=== PATIENT | male | born 1955 | race Two or more races ===

== ENCOUNTER 2022-10-21 09:45 | Inpatient (IN) | payer OTHER ==
[~2022-10-21] VITALS: Ht 167.6 cm; Wt 108.4 kg
[2022-10-21 10:24] LABS: Basophils # (auto) 0 10 ^3/uL (0-0.2); Basophils % (auto) 0.1 % (0.0-2.0); Eosinophils # (auto) 0 10 ^3/uL (0-0.8); Eosinophils % (auto) 0.1 % (0.0-7.0); Hematocrit 54.1 % (41.0-53.0); Hemoglobin 17.6 g/dL (13.5-17.5); Lymphocytes # (auto) 0.8 10 ^3/uL (0.4-5.4); Lymphocytes % (auto) 7.8 % (10.0-50.0); Mean Corpuscular Hemoglobin 28.2 pg (28.0-32.0); Mean Corpuscular Hgb Conc. 32.5 g/dL (32.0-36.0); Mean Corpuscular Volume 86.7 fL (80.0-100.0); Monocytes # (auto) 0.7 10 ^3/uL (0-1.3); Monocytes % (auto) 6.9 % (0.0-12.0); Neutrophils % (auto) 85.1 % (37.0-80.0); Nucleated Red Blood Cells % 0.4 %; Red Blood Cells 6.24 10^6/uL (4.5-5.90); Red Cell Distribution Width 15.3 % (11.8-14.3); White Blood Cell 10.6 10^3/uL (4.4-10.8)
[2022-10-21] MEDS ORDERED: SODIUM CHLORIDE 0.9% 1,000 ML IV ONE (10:45)
[2022-10-21 11:25] LABS: Chloride 97 mmol/L (98-107); Potassium 3.3 mmol/L (3.5-5.1); Sodium 138 mmol/L (136-145)
[2022-10-21 11:32] LABS: Anion Gap 18 (5-15); Aspartate Aminotransferase 22 U/L (15-37); BUN/Creatinine Ratio 10.6; Bilirubin, Total 1.3 mg/dL (0.2-1.0); Blood Urea Nitrogen 18 mg/dL (7-18); Carbon Dioxide 23 mmol/L (21-32); GFR African American 52 mL/min; GFR Non-African American 43 mL/min; Glucose 243 mg/dL (74-106); Magnesium 1.7 mg/dL (1.6-2.6); Total Protein 8.3 g/dL (6.4-8.2)
[2022-10-21 11:41] LABS: Alanine Aminotransferase 26 U/L (16-61); Alkaline Phosphatase 89 U/L (45-117)
[2022-10-21] MEDS ORDERED: IOHEXOL 300 MG/ML 100ML BOTTLE IJ ONE (14:13)
[2022-10-21] MEDS ORDERED: ONDANSETRON HCL 4 MG/2 ML VIAL IV ONE (15:30)
[2022-10-21] MEDS ORDERED: HYDROmorphone HCL 2 MG/ML VL/or syr IV ONE (15:30)
[2022-10-21] MEDS ORDERED: SODIUM CHLORIDE 0.9% 2,000 ML IV ONE (16:45)
[2022-10-21] MEDS ORDERED: DEXTROSE (50%) 50ML SYRG IV PRN (17:15)
[2022-10-21] MEDS ORDERED: MORPHINE SULFATE INJ 2 MG/ml SYRG IV PRN (17:15)
[2022-10-21] MEDS ORDERED: ONDANSETRON HCL 4 MG/2 ML VIAL IV PRN (17:15)
[2022-10-21] MEDS ORDERED: hydrALAZINE HCL 20 MG/ML VL IV PRN (17:45)
[2022-10-21] MEDS: InsuLIN REG 1unit/0.01ml Soln (100units/ml) SC SCH (18:00)
[2022-10-21] MEDS: ACCU-CHEK COMFORT CURVE STRIP VI SCH (18:02)
[2022-10-21] MEDS: PANTOPRAZOLE 40 MG/10 ML VIAL INJ IV SCH (18:03)
[2022-10-21] MEDS: POTASSIUM CHLORIDE 40 MEQ in SODIUM CHLORIDE 0.9% 1,000 ML IV SCH (18:20)
[2022-10-21 21:21] LABS: Urine Bacteria NONE SEEN /hpf (None Seen); Urine Blood Negative /uL (Negative); Urine Hyaline Cast MOD /lpf (0 - 2); Urine Mucus FEW (None Seen); Urine Specific Gravity 1.355 (1.001-1.035); Urine WBC 5 /hpf (0 - 3)
[2022-10-21 21:24] LABS: Creatinine, Urine 169 mg/dL (30.0-125.0); Sodium Urine 12 mmol/L (40-220)
[2022-10-22] MEDS: ACCU-CHEK COMFORT CURVE STRIP VI SCH ×5 (00:26→23:03)
[2022-10-22] MEDS: InsuLIN REG 1unit/0.01ml Soln (100units/ml) SC SCH ×5 (00:27→23:03)
[2022-10-22] MEDS: POTASSIUM CHLORIDE 40 MEQ in SODIUM CHLORIDE 0.9% 1,000 ML IV SCH ×2 (01:45→12:26)
[2022-10-22 04:30] LABS: Basophils # (auto) 0 10 ^3/uL (0-0.2); Basophils % (auto) 0.1 % (0.0-2.0); Eosinophils # (auto) 0 10 ^3/uL (0-0.8); Hematocrit 44.8 % (41.0-53.0); Hemoglobin 14.6 g/dL (13.5-17.5); Lymphocytes # (auto) 1.3 10 ^3/uL (0.4-5.4); Lymphocytes % (auto) 20.1 % (10.0-50.0); Mean Corpuscular Hgb Conc. 32.7 g/dL (32.0-36.0); Mean Corpuscular Volume 85.8 fL (80.0-100.0); Monocytes # (auto) 0.8 10 ^3/uL (0-1.3); Monocytes % (auto) 11.4 % (0.0-12.0); Neutrophils # (auto) 4.5 10 ^3/uL (1.6-8.6); Neutrophils % (auto) 68.4 % (37.0-80.0); Red Blood Cells 5.23 10^6/uL (4.5-5.90); Red Cell Distribution Width 15.4 % (11.8-14.3); White Blood Cell 6.6 10^3/uL (4.4-10.8)
[2022-10-22 06:18] LABS: Albumin 3.2 g/dL (3.4-5.0); BUN/Creatinine Ratio 21.1; Bilirubin, Total 1.3 mg/dL (0.2-1.0); Calcium 8.6 mg/dL (8.5-10.1); Total Protein 6.7 g/dL (6.4-8.2)
[2022-10-22 09:00] VITALS: BP 132/84
[2022-10-22] MEDS: PANTOPRAZOLE 40 MG/10 ML VIAL INJ IV SCH (11:27)
[2022-10-22] MEDS: SOD CHL 0.9%/ KCL 40MEQ 1,000 ML IV SCH (15:30)
[2022-10-22 22:00] VITALS: BP 137/84
[2022-10-23] MEDS: SOD CHL 0.9%/ KCL 40MEQ 1,000 ML IV SCH ×4 (00:36→19:20)
[2022-10-23 05:00] VITALS: BP 147/86
[2022-10-23] MEDS: ACCU-CHEK COMFORT CURVE STRIP VI SCH ×4 (05:28→23:28)
[2022-10-23] MEDS: InsuLIN REG 1unit/0.01ml Soln (100units/ml) SC SCH ×4 (05:28→23:28)
[2022-10-23 09:00] VITALS: BP 145/89
[2022-10-23] MEDS: PANTOPRAZOLE 40 MG/10 ML VIAL INJ IV SCH (09:22)
[2022-10-23] MEDS ORDERED: GASTROGRAFIN 120 ML SOL ONE (10:54)
[2022-10-23 11:30] LABS: BUN/Creatinine Ratio 18.3; Calcium 8.4 mg/dL (8.5-10.1); Potassium 4.1 mmol/L (3.5-5.1)
[2022-10-23 13:00] VITALS: BP 153/91
[2022-10-23 17:00] VITALS: BP 145/93
[2022-10-23 22:00] VITALS: BP 152/81
[2022-10-24 05:00] VITALS: BP 156/83
[2022-10-24] MEDS: InsuLIN REG 1unit/0.01ml Soln (100units/ml) SC SCH ×3 (06:00→16:33)
[2022-10-24] MEDS: ACCU-CHEK COMFORT CURVE STRIP VI SCH ×3 (06:03→16:33)
[2022-10-24 06:43] LABS: Potassium 4.6 mmol/L (3.5-5.1)
[2022-10-24 06:47] LABS: BUN/Creatinine Ratio 18.3; Calcium 8.7 mg/dL (8.5-10.1)
[2022-10-24 07:30] LABS: Basophils # (auto) 0 10 ^3/uL (0-0.2); Basophils % (auto) 0.1 % (0.0-2.0); Eosinophils # (auto) 0.1 10 ^3/uL (0-0.8); Eosinophils % (auto) 0.7 % (0.0-7.0); Hematocrit 41.9 % (41.0-53.0); Hemoglobin 13.4 g/dL (13.5-17.5); Lymphocytes # (auto) 1.7 10 ^3/uL (0.4-5.4); Lymphocytes % (auto) 19.6 % (10.0-50.0); Mean Corpuscular Hemoglobin 27.9 pg (28.0-32.0); Mean Corpuscular Hgb Conc. 31.9 g/dL (32.0-36.0); Mean Corpuscular Volume 87.6 fL (80.0-100.0); Monocytes # (auto) 0.7 10 ^3/uL (0-1.3); Monocytes % (auto) 7.9 % (0.0-12.0); Neutrophils # (auto) 6.4 10 ^3/uL (1.6-8.6); Neutrophils % (auto) 71.7 % (37.0-80.0); Nucleated Red Blood Cells % 0.1 %; Red Blood Cells 4.78 10^6/uL (4.5-5.90); Red Cell Distribution Width 15.2 % (11.8-14.3); White Blood Cell 8.9 10^3/uL (4.4-10.8)
[2022-10-24] MEDS: PANTOPRAZOLE 40 MG/10 ML VIAL INJ IV SCH (08:04)
[2022-10-24 09:00] VITALS: BP 150/66
[2022-10-24] MEDS ORDERED: SOD CHL 0.45% 1,000 ML IV SCH (11:00)
[2022-10-24 13:00] VITALS: BP 146/102
== END 2022-10-24 20:17 | disposition home or self-care (01) | DRG 389 ==
LOC: ER 09:45 → OVERFLOW 17:15 → CENTRAL 10-22 08:55
PROVIDERS: ADMIT Nurse Practitioner Family; ATTEND Nurse Practitioner Acute Care
PROC: 0D9670Z Drainage of Stomach with Drainage Device, Via Natural or Artificial Opening (ICD-10-PCS; principal; 2022-10-21)
DX: K56.699 Other intestinal obstruction unspecified as to partial versus complete obstruction (principal); J98.11 Atelectasis; N17.9 Acute kidney failure, unspecified; K57.10 Diverticulosis of small intestine without perforation or abscess without bleeding; E11.21 Type 2 diabetes mellitus with diabetic nephropathy; E78.5 Hyperlipidemia, unspecified; E86.0 Dehydration; E87.6 Hypokalemia; I10 Essential (primary) hypertension; K40.20 Bilateral inguinal hernia, without obstruction or gangrene, not specified as recurrent; K76.0 Fatty (change of) liver, not elsewhere classified; K80.20 Calculus of gallbladder without cholecystitis without obstruction; M51.36 Other intervertebral disc degeneration, lumbar region; E66.9 Obesity, unspecified; Z68.38 Body mass index [BMI] 38.0-38.9, adult; Z20.822 Contact with and (suspected) exposure to COVID-19
CPT/HCPCS: 36415; 71045; 74177; 74250; 80048; 80053; 81001; 82010; 82570; 82962; 83036; 83690; 83735; 84100; 84300; 85025; 87426; 93005; 96361; 96374; 96375; C9113; G0378; J1815; J2405

== ENCOUNTER → 2024-03-04 | Outpatient (CLI) | payer MEDICAID ==
[2024-03-04 10:05] LABS: Urine Bacteria None Seen /hpf (None Seen)
[2024-03-04 10:27] LABS: Basophils # (auto) 0 10 ^3/uL (0-0.2); Basophils % (auto) 0.2 % (0.0-2.0); Eosinophils # (auto) 0.1 10 ^3/uL (0-0.8); Eosinophils % (auto) 1.7 % (0.0-7.0); Lymphocytes # (auto) 3.7 10 ^3/uL (0.4-5.4); Lymphocytes % (auto) 43.6 % (10.0-50.0); Mean Corpuscular Volume 87.6 fL (80.0-100.0); Monocytes # (auto) 0.8 10 ^3/uL (0-1.3); Neutrophils # (auto) 3.9 10 ^3/uL (1.6-8.6); Neutrophils % (auto) 45.5 % (37.0-80.0); Nucleated Red Blood Cells % 0.2 %; Red Blood Cells 5.37 10^6/uL (4.5-5.90); Red Cell Distribution Width 14.6 % (11.8-14.3); White Blood Cell 8.6 10^3/uL (4.4-10.8)
[2024-03-04 10:51] LABS: Urine Blood Negative /uL (Negative); Urine Clarity Clear (Clear); Urine Color Light-Yellow (Yellow); Urine Protein, UAD Negative (Negative); Urine Specific Gravity 1.015 (1.001-1.035); Urine Urobilinogen Normal (Negative); Urine WBC <1 /hpf (0 - 3); Urine pH 5.5 (5.0-9.0)
[2024-03-04 11:46] LABS: Creatinine, Urine 84.04 mg/dL (30.0-125.0)
[2024-03-04 11:51] LABS: Alanine Aminotransferase 18 U/L (7-40); Albumin 4.4 g/dL (3.2-4.8); Alkaline Phosphatase 87 U/L (46-116); Anion Gap 5 (5-15); Aspartate Aminotransferase 20 U/L (13-40); BUN/Creatinine Ratio 17.8 (10.0-20.0); Blood Urea Nitrogen 16 mg/dL (9-23); Calcium 9.9 mg/dL (8.5-10.1); Carbon Dioxide 29 mmol/L (20-30); Chloride 103 mmol/L (98-107); Cholesterol 104 mg/dL (< 200); Glucose 101 mg/dL (74-106); HDL Cholesterol 32 mg/dL (40-59); LDL Cholesterol 48 mg/dL (< 100); Potassium 4.6 mmol/L (3.5-5.1); Sodium 137 mmol/L (136-145); Triglycerides 131 mg/dL (< 150)
[2024-03-04 11:53] LABS: Bilirubin, Total 1.1 mg/dL (0.2-1.0); Total Protein 7.1 g/dL (5.7-8.2)
== END | disposition home or self-care (01) ==
LOC: LAB 09:53
PROVIDERS: ATTEND Student in an Organized Health Care Education/Training Program
DX: I10 Essential (primary) hypertension (principal); E78.5 Hyperlipidemia, unspecified; E11.21 Type 2 diabetes mellitus with diabetic nephropathy; R14.0 Abdominal distension (gaseous); E55.9 Vitamin D deficiency, unspecified
CPT/HCPCS: 36415; 80053; 80061; 81001; 82043; 82306; 82570; 83036; 85025

== ENCOUNTER → 2024-09-02 | Outpatient (CLI) | payer MEDICAID ==
[2024-09-02 09:55] LABS: Basophils # (auto) 0 10 ^3/uL (0-0.2); Basophils % (auto) 0.2 % (0.0-2.0); Eosinophils # (auto) 0.1 10 ^3/uL (0-0.8); Eosinophils % (auto) 1.4 % (0.0-7.0); Hematocrit 48.9 % (41.0-53.0); Hemoglobin 15.9 g/dL (13.5-17.5); Lymphocytes # (auto) 3.8 10 ^3/uL (0.4-5.4); Lymphocytes % (auto) 37.9 % (10.0-50.0); Mean Corpuscular Hemoglobin 28.3 pg (28.0-32.0); Mean Corpuscular Hgb Conc. 32.5 g/dL (32.0-36.0); Mean Corpuscular Volume 87.2 fL (80.0-100.0); Monocytes # (auto) 0.7 10 ^3/uL (0-1.3); Monocytes % (auto) 7.2 % (0.0-12.0); Neutrophils # (auto) 5.3 10 ^3/uL (1.6-8.6); Neutrophils % (auto) 53.3 % (37.0-80.0); Nucleated Red Blood Cells % 0.1 %; Platelet Count (auto) 204 10^3/uL (140-450); Red Cell Distribution Width 14.5 % (11.8-14.3)
[2024-09-02 10:03] LABS: Urine Blood Negative /uL (Negative); Urine Clarity Clear (Clear); Urine Color Light-Yellow (Yellow); Urine Protein, UAD TRACE (Negative); Urine Urobilinogen Normal (Negative); Urine pH 5.5 (5.0-9.0)
[2024-09-02 10:54] LABS: Creatinine, Urine 167.35 mg/dL (30.0-125.0)
[2024-09-02 10:56] LABS: Alanine Aminotransferase 18 U/L (7-40); Albumin 4.5 g/dL (3.2-4.8); Alkaline Phosphatase 93 U/L (46-116); Anion Gap 5 (5-15); Aspartate Aminotransferase 16 U/L (13-40); BUN/Creatinine Ratio 15.6 (10.0-20.0); Bilirubin, Total 1.4 mg/dL (0.2-1.0); Blood Urea Nitrogen 17 mg/dL (9-23); Carbon Dioxide 31 mmol/L (20-31); Chloride 102 mmol/L (98-107); Cholesterol 100 mg/dL (< 200); Glucose 104 mg/dL (74-106); HDL Cholesterol 32 mg/dL (40-59); LDL Cholesterol 39 mg/dL (< 100); Potassium 4.2 mmol/L (3.5-5.1); Sodium 138 mmol/L (136-145); Total Protein 7.4 g/dL (5.7-8.2); Triglycerides 174 mg/dL (< 150)
[2024-09-02 11:07] LABS: Prostate Specific Antigen 0.77 ng/mL (0.0-4.0)
== END | disposition home or self-care (01) ==
LOC: LAB 09:29
DX: Z12.11 Encounter for screening for malignant neoplasm of colon (principal); I10 Essential (primary) hypertension; E55.9 Vitamin D deficiency, unspecified; E78.5 Hyperlipidemia, unspecified
CPT/HCPCS: 36415; 80053; 80061; 81003; 82043; 82306; 82570; 82607; 83036; 84153; 85025

== ENCOUNTER → 2025-04-03 | Outpatient (CLI) | payer MEDICAID ==
[2025-04-03 07:06] LABS: Urine Bacteria None Seen /hpf (None Seen)
[2025-04-03 07:38] LABS: Basophils # (auto) 0 10 ^3/uL (0-0.2); Basophils % (auto) 0.2 % (0.0-2.0); Eosinophils # (auto) 0.2 10 ^3/uL (0-0.8); Eosinophils % (auto) 1.9 % (0.0-7.0); Hematocrit 47.5 % (41.0-53.0); Hemoglobin 15.7 g/dL (13.5-17.5); Lymphocytes # (auto) 4.2 10 ^3/uL (0.4-5.4); Lymphocytes % (auto) 46.6 % (10.0-50.0); Mean Corpuscular Hemoglobin 27.7 pg (28.0-32.0); Mean Corpuscular Hgb Conc. 33.1 g/dL (32.0-36.0); Mean Corpuscular Volume 83.7 fL (80.0-100.0); Monocytes # (auto) 0.7 10 ^3/uL (0-1.3); Monocytes % (auto) 7.6 % (0.0-12.0); Neutrophils # (auto) 3.9 10 ^3/uL (1.6-8.6); Neutrophils % (auto) 43.7 % (37.0-80.0); Nucleated Red Blood Cells % 0.2 %; Platelet Count (auto) 199 10^3/uL (140-450); Red Blood Cells 5.67 10^6/uL (4.5-5.90); Red Cell Distribution Width 15.1 % (11.8-14.3); Urine Blood Negative /uL (Negative); Urine Clarity Turbid (Clear); Urine Color Light-Yellow (Yellow); Urine Protein, UAD Negative (Negative); Urine Specific Gravity 1.013 (1.001-1.035); Urine Squamous Epithelial Cell None Seen /hpf (<5); Urine Urobilinogen Normal (Negative); Urine WBC 3 /HPF (0-3); Urine pH 5.5 (5.0-9.0); White Blood Cell 8.9 10^3/uL (4.4-10.8)
[2025-04-03 08:24] LABS: Alanine Aminotransferase 16 U/L (7-40); Albumin 4.6 g/dL (3.2-4.8); Alkaline Phosphatase 94 U/L (46-116); Anion Gap 7 (5-15); Aspartate Aminotransferase 19 U/L (13-40); BUN/Creatinine Ratio 13.5 (10.0-20.0); Blood Urea Nitrogen 14 mg/dL (9-23); Calcium 10.4 mg/dL (8.7-10.4); Carbon Dioxide 29 mmol/L (20-31); Chloride 104 mmol/L (98-107); Glucose 103 mg/dL (74-106); LDL Cholesterol 38 mg/dL (< 100); Potassium 4.4 mmol/L (3.5-5.1); Sodium 140 mmol/L (136-145); Total Protein 7.2 g/dL (5.7-8.2)
[2025-04-03 08:25] LABS: Bilirubin, Total 1.1 mg/dL (0.2-1.0); Cholesterol 99 mg/dL (< 200)
[2025-04-03 08:29] LABS: HDL Cholesterol 28 mg/dL (40-59); Triglycerides 165 mg/dL (< 150)
== END | disposition home or self-care (01) ==
LOC: LAB 06:51
PROVIDERS: ATTEND Nurse Practitioner Family
DX: I10 Essential (primary) hypertension (principal); E11.9 Type 2 diabetes mellitus without complications; E55.9 Vitamin D deficiency, unspecified; E78.5 Hyperlipidemia, unspecified
CPT/HCPCS: 36415; 80053; 80061; 81001; 82306; 82607; 83036; 84443; 85025

== ENCOUNTER → 2025-07-31 | Outpatient (CLI) | payer MEDICAID ==
[2025-07-31 08:59] LABS: Hematocrit 48.8 % (41.0-53.0); Hemoglobin 16.1 g/dL (13.5-17.5); Mean Corpuscular Hemoglobin 28.3 pg (28.0-32.0); Mean Corpuscular Volume 85.5 fL (80.0-100.0); Nucleated Red Blood Cells % 0.1 %
[2025-07-31 09:16] LABS: Microalb/Creat Ratio, Urine 23.0
[2025-07-31 09:18] LABS: Urine Protein, UAD Negative (Negative)
[2025-07-31 09:19] LABS: Alanine Aminotransferase 17 U/L (7-40); Albumin 4.6 g/dL (3.2-4.8); Alkaline Phosphatase 108 U/L (46-116); Anion Gap 9 (5-15); BUN/Creatinine Ratio 11.9 (10.0-20.0); Blood Urea Nitrogen 13 mg/dL (9-23); Calcium 9.8 mg/dL (8.7-10.4); Carbon Dioxide 30 mmol/L (20-31); Chloride 101 mmol/L (98-107); Glucose 103 mg/dL (74-106); Potassium 5.0 mmol/L (3.5-5.1); Sodium 140 mmol/L (136-145); Total Protein 7.6 g/dL (5.7-8.2)
[2025-07-31 09:20] LABS: Bilirubin, Total 1.1 mg/dL (0.2-1.0); Cholesterol 102 mg/dL (< 200); HDL Cholesterol 33 mg/dL (40-59); Triglycerides 154 mg/dL (< 150)
== END | disposition home or self-care (01) ==
LOC: LAB 08:21
PROVIDERS: ATTEND Nurse Practitioner Family
DX: I10 Essential (primary) hypertension (principal); E78.5 Hyperlipidemia, unspecified; E55.9 Vitamin D deficiency, unspecified
CPT/HCPCS: 36415; 80053; 80061; 81001; 82043; 82306; 82570; 83036; 84443; 85025

== ENCOUNTER 2025-10-21 11:59 | Inpatient (IN) | payer MEDICAID ==
[~2025-10-21] VITALS: Ht 172.7 cm; Wt 106.8 kg
--- NOTE | 2025-10-21 12:38 | ED.PDOC ---
GI ASSESSMENT HPI Comments 70y M who presents to the ED for chief complaint of abdominal pain. Pt states he has been having diffuse abdominal pain and swelling for the past 1x days. Pt states his pain is diffusely located, aching in nature, constant, with no noted exacerbating or relieving factors. Pt denies any associated symptoms. Pt in the ED, had low 02 sat of 92% and was placed on supplemental 02. Pt prior records show pt was at [facility] 2x years prior for similar symptoms and was hospitalized and had NG tube placed for possible bowel obstruction which resolved after hospitalization and pt was discharged on normal diet. Pt otherwise denies any other symptoms at this time. Chief Complaint: Abdominal Pain Time Seen by MD: 12:36 Primary Care Provider: RYANNE Quiroz Notes: Medications, Allergies Allergies: Coded Allergies: NO KNOWN ALLERGIES (Unverified , 10/21/22) Home Meds No Active Prescriptions or Reported Meds Information Source: Patient, Relative Mode of Arrival: Ambulatory Brought in by: family Past Medical History PAST MEDICAL HISTORY: DM, High Lipids, HTN Surgical History: Denies all surgeries Family History Family History: Reviewed,noncontributory to illness Social History Smoker: Non-Smoker Alcohol: Denies ETOH Use Drugs: Denies Drug Use Lives In: Home Constitutional: denies: chills, diaphoresis, fatigue, fever, malaise, sweats, weakness, others EENTM: denies: blurred vision, double vision, ear bleeding, ear discharge, ear drainage, ear pain, ear ringing, eye pain, eye redness, hearing loss, mouth pain, mouth swelling, nasal discharge, nose bleeding, nose congestion, nose pain, photophobia, tearing, throat pain, throat swelling, voice changes, others Respiratory: denies: cough, hemoptysis, orthopnea, SOB at rest, shortness of breath, SOB with excertion, stridor, wheezing, others Cardiovascular: denies: chest pain, dizzy spells, diaphoresis, Dyspnea on exertion, edema, irregular heart beat, left arm pain, lightheadedness, palpitations, PND, syncope, others Gastrointestinal: reports: abdominal pain; denies: abdomen distended, blood streaked bowels, constipated, diarrhea, dysphagia, difficulty swallowing, hematemesis, melena, nausea, poor appetite, poor fluid intake, rectal bleeding, rectal pain, vomiting, others Genitourinary: denies: burning, dysuria, flank pain, frequency, hematuria, incontinence, penile discharge, penile sore, pain, testicle pain, testicle swelling, urgency, others Neurological: denies: dizziness, fainting, headache, left sided numbness, left sided weakness, numbness, paresthesia, pre-existing deficit, right sided numbne ss, right sided weakness, seizure, speech problems, tingling, tremors, weakness, others Musculoskeletal: denies: back pain, gout, joint pain, joint swelling, muscle pain, muscle stiffness, neck pain, others Integumetry: denies: bruises, change in color, change in hair/nails, dryness, laceration, lesions, lumps, rash, wounds, others Allergic/Immunocompromised: denies: Difficulty Healing, Frequent Infections, Hives, Itching, others Hematologic/Lymphatic: denies: anemia, blood clots, easy bleeding, easy bruising, swollen glands, others Endocrine: denies: excessive hunger, excessive sweating, excessive thirst, excessive urination, flushing, intolerance to cold, intolerance to heat, unexplained weight gain, unexplained weight loss, others Psychiatric: denies: anxiety, bipolar disorder, depression, hopeless, panic disorder, schizophrenia, sleepless, suicidal, others All Other Systems: Reviewed and Negative Physical Exam General Appearance: Moderate Distress HEENT: Normal ENT Inspection, PERRL/EOMI Neck: Full Range of Motion, Non-Tender, Normal, Normal Inspection Respiratory: Chest Non-Tender, Lungs Clear, No Accessory Muscle Use, No Respiratory Distress, Normal Breath Sounds Cardiovascular: No Edema, No JVD, No Murmur, No Gallop, Normal Peripheral Pulses, Regular Rate/Rhythm Breast Exam: Deferred Gastrointestinal: Distended, Epigastric, No Organomegaly, No Pulsatile Mass, Normal Bowel Sounds, Soft, Tenderness Genitalia: Deferred Pelvic: Deferred Rectal: Deferred Extremities: No calf tenderness, Normal capillary refill, Normal inspection, Normal range of motion, Non-tender, No pedal edema Neurologic: Alert, channel marketing coordinator II-XII nml as Tested, No Motor Deficits, Normal Affect, Normal Mood, No Sensory Deficits Cerebellar Function: Normal Reflexes: Normal Skin: Dry, Normal Color, Warm Peripheral Pulses: 1+ carotid (R), 1+ carotid (L) Lymphatic: No Adenopathy Was a procedure done? Was a procedure done?: No GI differential Dx Differential Diagnosis: Bowel Obstruction, Constipation, Diverticular disease, GI hemorrhage, Hernia, Dehydration, Diabetes/ DKA, Electrolyte Imbalance, Ischemic Bowel, Anemia Other Differential Diagnosis ileus, X-Ray, Labs, Meds, VS Vital Signs Date Time Temp Pulse Resp B/P (MAP) Pulse Ox O2 Delivery O2 Flow Rate FiO2 10/21/25 14:07 110 10/21/25 12:06 98.5 120 18 158/102 92 98.5 Lab Test 10/21/25 12:39 Range/Units White Blood Count 14.2 H 4.4-10.8 10^3/uL Red Blood Count 6.12 H 4.5-5.90 10^6/uL Hemoglobin 16.9 13.5-17.5 g/dL Hematocrit 52.3 41.0-53.0 % Mean Corpuscular Volume 85.4 80.0-100.0 fL Mean Corpuscular Hemoglobin 27.6 L 28.0-32.0 pg Mean Corpuscular Hemoglobin Concent 32.3 32.0-36.0 g/dL Red Cell Distribution Width 15.3 H 11.8-14.3 % Platelet Count 237 140-450 10^3/uL Mean Platelet Volume 7.3 6.9-10.8 fL Neutrophils (%) (Auto) 84.4 H 37.0-80.0 % Lymphocytes (%) (Auto) 9.6 L 10.0-50.0 % Monocytes (%) (Auto) 6.0 0.0-12.0 % Eosinophils (%) (Auto) 0.0 0.0-7.0 % Basophils (%) (Auto) 0.0 0.0-2.0 % Neutrophils # (Auto) 12.0 H 1.6-8.6 10 ^3/uL Lymphocytes # (Auto) 1.4 0.4-5.4 10 ^3/uL Monocytes # (Auto) 0.9 0-1.3 10 ^3/uL Eosinophils # (Auto) 0 0-0.8 10 ^3/uL Basophils # (Auto) 0 0-0.2 10 ^3/uL Nucleated Red Blood Cells 0.0 % Sodium Level 141 136-145 mmol/L Potassium Level 4.3 3.5-5.1 mmol/L Chloride Level 100 98-107 mmol/L Carbon Dioxide Level 30 20-31 mmol/L Anion Gap 11 5-15 Blood Urea Nitrogen 12 9-23 mg/dL Creatinine 1.16 0.700-1.30 mg/dL Glomerular Filtration Rate Calc 68 >90 mL/min BUN/Creatinine Ratio 10.3 10.0-20.0 Serum Glucose 167 H 74-106 mg/dL Calcium Level 11.1 H 8.7-10.4 mg/dL Magnesium Level 1.8 1.6-2.6 mg/dL Total Bilirubin 1.1 H 0.2-1.0 mg/dL Aspartate Amino Transferase (AST) 25 13-40 U/L Alanine Aminotransferase (ALT) 17 7-40 U/L Alkaline Phosphatase 110 46-116 U/L Total Protein 8.1 5.7-8.2 g/dL Albumin 4.9 H 3.2-4.8 g/dL Lipase 35 12-53 U/L [place] [id number] Ph: [phone] DIAGNOSTIC IMAGING Diagnostic Imaging Report : [id number] Signed PATIENT: FREDA JOHNSACCT: [id number] UNIT: [id number] : 1955 LOC: ER ROOM / BED: / AGE / SEX: 70 / M ADM STATUS: REG ER SERVICE [id number] ORDERING PHYSICIAN: RASHIDA TORREZ MD PROCEDURE(s): ABPLIV - CT AB PEL WITH IV CON ONLY REASON: Sudden onset due abdominal distention ORDER NUMBER(s): [id number], ACCESSION NUMBER(s): [id number] EXAM: CT CT AB PEL WITH IV CON ONLY History: Sudden onset due abdominal distention Comparison Study: CT AB PEL WITH IV CON ONLY on DOS: 10/21/22 TECHNIQUE: Multidetector CT of the abdomen and pelvis with IV contrast. Axial, coronal and sagittal multiplanar reformats were obtained from the axial data set by the technologist. Radiation Dose Information: CT Dose: CTDI volume is 24.7 mGy. Dose-length product is 1569.25 mGy*cm FINDINGS: Bibasilar atelectasis. Partially visualized heart is unremarkable. Liver, spleen, pancreas and adrenal glands are unremarkable. Cholelithiasis with no CT evidence of acute cholecystitis. Kidneys, ureters and urinary bladder unremarkable. Prostate measures 3.9 x 4.3 by 4 cm with calcifications. 1.6 cm hypodensity within the stomach with adjacent small Layering hypodensity which may represent Ingested material. Mild gastric wall thickening. 2.3 x 1.6 cm proximal duodenal diverticulum is noted. Proximal small bowel loops are unremarkable. Fluid filled distended mid to Distal Small bowel loops with areas with distention up to 3.9 cm. Appendix is unremarkable. Moderate amount of fecal material within the ascending and transverse colon. Otherwise, Small amount of fecal material within the colon. Mild wall thickening of the colon adjacent to the ileocecal valve. 2.6 x 2.2 cm fatty lesion over the left lateral midabdomen without adjacent inflammatory reaction which may represent an epiploic appendage. No evidence of intraperitoneal free air or free fluid. No evidence of aortic aneurysm or dissection. Minimal atherosclerotic calcification of the aorta. No significant lymphadenopathy. Moderate fat containing right inguinal hernia. Tiny fat containing umbilical hernia. The soft tissues unremarkable. Sclerotic focus of the right sacral bone which may represent a bone island blastic lesion not excluded. Severe degenerative changes of bilateral SI joints with moderate degenerative changes of bilateral hips. No evidence of acute osseous abnormalities. Multilevel bridging osteophytes of the thoracic and lumbar spine. IMPRESSION: Fluid-filled Distended Small bowel loops measuring up to 3.9 cm. Correlate for bowel obstruction/ ileus. Mild wall thickening of the mid stomach which may be due to inadequate distention/gastritis. Segmental wall thickening of the ascending colon adjacent to the ileocecal valve. Colonoscopy is recommended to exclude neoplasm. Additional findings as above. ATED BY: ROSA ROMAN DO DICTATED DATE/TIME: 10/21/25 140 SIGNED BY: ROSA ROMAN DO SIGNED DATE/TIME: 10/21/25 140 CC: X-Ray, Labs, Meds, VS Comment Course in the emergency department eventful patient came in with a distended abdomen The CT abdomen burning shows probably need small-bowel obstruction could be ED use which she had three years ago also gastritis an ileocecal wall thickening to thing grossly [place] 63461 rhythm with a T4% neutrophils in normal H&H CMP blood sugar is 167 calcium 11.1 magnesium 1.8 the lipase 35 rest normal Patient we will be admitted for further care Time of 1ST Reevaluation: 13:10 Reevaluation 1ST: Unchanged Time of 2ND Reevaluation: 15:00 Reevaluation 2ND: Unchanged Patient Education/Counseling: Diagnosis, Treatment, Prognosis, Need For Follow Up Family Education/Counseling: Diagnosis, Treatment, Prognosis, Need For Follow Up, No Family Present SEPSIS Sepsis Screen Date sepsis recognized/suspect: Oct 21, 2025 Time Sepsis recognized/suspect: 1208 Recent Procedure: No On Antibiotic Therapy: No Respiratory Rate >20: No Heart Rate >90: Yes Temp<36 C (96.8 F) or >38.3 C: No SBP <90 or MAP <65 mmHG: No New Acute Mental Status Change: No Is the patient on CPAP, BIPAP,: No Physician Orders Ct Ab Pel With Iv Con Only (10/21/25 12:28) Heplock Iv (10/21/25 12:28) Blood Pressure (10/21/25 12:28) Electrocardigram (10/21/25 12:28) Ng To Lcs (10/21/25 15:03) Vital Signs Date Time Temp Pulse Resp B/P (MAP) Pulse Ox O2 Delivery O2 Flow Rate FiO2 10/21/25 14:07 110 10/21/25 12:06 98.5 120 18 158/102 92 98.5 Laboratory Tests Test 10/21/25 12:39 White Blood Count 14.2 10^3/uL (4.4-10.8) H Departure 1 Departure Time of Disposition: 15:00 Impression: Primary Impression: Small bowel obstruction Additional Impressions: Uncontrolled diabetes mellitus Qualified Codes: E11.65 - Type 2 diabetes mellitus with hyperglycemia Gastritis Qualified Codes: K29.30 - Chronic superficial gastritis without bleeding Abnormal computed tomography of cecum and terminal ileum Disposition: ADMITTED INPATIENT Admit to: Tele Condition: Fair e-Prescriptions No Active Prescriptions or Reported Meds Critical Care Note Critical Care Time?: No Stability Stability form required: Yes Heart Score Heart Score: Heart Score Response (Comments) Value History N/A 0 EKG N/A 0 Age >65 2 Risk Factors 1 or 2 risk factors 1 Troponin N/A 0 Total 3 I personally scribed for RASHIDA TORREZ MD ([email or web address]) on 10/21/25 at 12:38. Electronically submitted by Ramonita Suazo ([email or web address]). RASHIDA TORREZ MD Oct 21, 2025 12:38
[2025-10-21 12:54] LABS: Nucleated Red Blood Cells % 0.0 %
[2025-10-21 12:55] LABS: Hematocrit 52.3 % (41.0-53.0); Hemoglobin 16.9 g/dL (13.5-17.5); Mean Corpuscular Hemoglobin 27.6 pg (28.0-32.0); Mean Corpuscular Volume 85.4 fL (80.0-100.0)
[2025-10-21 13:07] LABS: Alanine Aminotransferase 17 U/L (7-40); Alkaline Phosphatase 110 U/L (46-116); Anion Gap 11 (5-15); BUN/Creatinine Ratio 10.3 (10.0-20.0); Blood Urea Nitrogen 12 mg/dL (9-23); Carbon Dioxide 30 mmol/L (20-31); Chloride 100 mmol/L (98-107); Lipase 35 U/L (12-53); Magnesium 1.8 mg/dL (1.6-2.6); Potassium 4.3 mmol/L (3.5-5.1); Sodium 141 mmol/L (136-145); Total Protein 8.1 g/dL (5.7-8.2)
[2025-10-21 13:08] LABS: Albumin 4.9 g/dL (3.2-4.8); Bilirubin, Total 1.1 mg/dL (0.2-1.0); Calcium 11.1 mg/dL (8.7-10.4); Glucose 167 mg/dL (74-106)
[2025-10-21] MEDS: IOHEXOL 300 MG/ML 100ML BOTTLE IJ ONE (14:09)
--- NOTE | 2025-10-21 14:12 | DVH ---
EXAM: CT CT AB PEL WITH IV CON ONLY History: Sudden onset due abdominal distention Comparison Study: CT AB PEL WITH IV CON ONLY on DOS: 10/21/22 TECHNIQUE: Multidetector CT of the abdomen and pelvis with IV contrast. Axial, coronal and sagittal multiplanar reformats were obtained from the axial data set by the technologist. Radiation Dose Information: CT Dose: CTDI volume is 24.7 mGy. Dose-length product is 1569.25 mGy*cm FINDINGS: Bibasilar atelectasis. Partially visualized heart is unremarkable. Liver, spleen, pancreas and adrenal glands are unremarkable. Cholelithiasis with no CT evidence of acute cholecystitis. Kidneys, ureters and urinary bladder unremarkable. Prostate measures 3.9 x 4.3 by 4 cm with calcifications. 1.6 cm hypodensity within the stomach with adjacent small Layering hypodensity which may represent Ingested material. Mild gastric wall thickening. 2.3 x 1.6 cm proximal duodenal diverticulum is noted. Proximal small bowel loops are unremarkable. Fluid filled distended mid to Distal Small bowel loops with areas with distention up to 3.9 cm. Appendix is unremarkable. Moderate amount of fecal material within the ascending and transverse colon. Otherwise, Small amount of fecal material within the colon. Mild wall thickening of the colon adjacent to the ileocecal valve. 2.6 x 2.2 cm fatty lesion over the left lateral midabdomen without adjacent inflammatory reaction which may represent an epiploic appendage. No evidence of intraperitoneal free air or free fluid. No evidence of aortic aneurysm or dissection. Minimal atherosclerotic calcification of the aorta. No significant lymphadenopathy. Moderate fat containing right inguinal hernia. Tiny fat containing umbilical hernia. The soft tissues unremarkable. Sclerotic focus of the right sacral bone which may represent a bone island blastic lesion not excluded. Severe degenerative changes of bilateral SI joints with moderate degenerative changes of bilateral hips. No evidence of acute osseous abnormalities. Multilevel bridging osteophytes of the thoracic and lumbar spine. IMPRESSION: Fluid-filled Distended Small bowel loops measuring up to 3.9 cm. Correlate for bowel obstruction/ ileus. Mild wall thickening of the mid stomach which may be due to inadequate distention/gastritis. Segmental wall thickening of the ascending colon adjacent to the ileocecal valve. Colonoscopy is recommended to exclude neoplasm. Additional findings as above.
[2025-10-21] MEDS ORDERED: ONDANSETRON HCL 4 MG/2 ML VIAL IV PRN (18:30)
[2025-10-21] MEDS ORDERED: ACETAMINOPHEN 325 MG TAB PO PRN (18:30)
[2025-10-21] MEDS ORDERED: DEXTROSE (50%) 50ML SYRG IV PRN (18:30)
[2025-10-21] MEDS ORDERED: MORPHINE SULFATE 4 MG/ML SYR/VIAL IV PRN ×2 (18:30)
[2025-10-21] MEDS ORDERED: NITROGLYCERIN 0.4 MG SL TAB SL PRN (18:30)
--- NOTE | 2025-10-21 18:39 | DVHHPRES ---
History of Present Illness Resident Creating Document: POWER CANALES RESIDENT History of Present Illness Mr. Matthews Is a 70-year-old male presents with acute onset of abdominal bloating and vomiting that began last night. The patient reports eating 3 tamales around 1 PM yesterday, after which he developed significant bloating o vernight. This morning the symptoms worsened and he vomited 2 times. He reports a similar episode occurred approximately 3 years ago, during which something was drained from his stomach. The patient describes having reflux symptoms for a couple of days prior to this acute episode. He has been unable to pass gas today and has not eaten anything since the symptoms began, consuming only water. His last bowel movement was yesterday. He denies any weight loss and reports no flu symptoms. The patient has a history of colonoscopy performed around the time of COV which showed normal results. He denies any history of cancer. He also notes that his oxygen levels have been running 88-90% but denies any difficulty breathing. Medical History - Similar episode of gastric bloating approximately 3 years ago requiring gastric decompression - Colonoscopy performed during COVID period with normal results - Hearing impairment Surgical History - Gastric drainage procedure approximately 3 years ago for similar bloating symptoms - Colonoscopy during COVID period with normal results Social history: Lives at home. Denies smoking, alcohol and other drug abuse Family history: Not significant Review of Systems General: Negative for weight loss. HEENT: Patient has hearing issues. Respiratory: Negative for difficulty breathing. Gastrointestinal: Positive for bloating, vomiting (2 episodes), reflux over past couple days, inability to pass gas, constipation since this morning. Negative for nausea since morning (patient has not eaten anything since morning, only water). Review of Systems Allergies: Coded Allergies: NO KNOWN ALLERGIES (Unverified , 10/21/22) Medications Current Medications Medications Dose Ordered Sig/Esha Route Start Time Stop Time Status Last Admin Dose Admin Sodium Chloride 10 ml Q8HR IV 10/21/25 22:00 Sodium Chloride 1,000 ml @ 100 mls/hr Q10H IV 10/21/25 18:30 Ondansetron HCl 4 mg Q4HP PRN IV 10/21/25 18:30 Enoxaparin Sodium 40 mg DAILY SC 10/22/25 10:00 UNV Acetaminophen 650 mg Q6HP PRN PO 10/21/25 18:30 Nitroglycerin 0.4 mg Q5MINP PRN SL 10/21/25 18:30 Morphine Sulfate 2 mg Q30M PRN IV 10/21/25 18:30 UNV Pantoprazole Sodium 40 mg DAILY IV 10/21/25 18:30 Piperacillin Sod/ Tazobactam Sod 100 ml @ 25 mls/hr Q8HR IV 10/21/25 22:00 UNV Morphine Sulfate 1 mg Q4HP PRN IV 10/21/25 18:30 UNV Diagnostic Test (Pha) 1 strip Q6HR 10/22/25 00:00 UNV Insulin Human Regular Q6HR SC 10/22/25 00:00 UNV Dextrose 50 ml UD PRN IV 10/21/25 18:30 UNV Amlodipine Besylate 5 mg DAILY PO 10/21/25 18:30 UNV Exam Vital Signs Vital Signs Date Time Temp Pulse Resp B/P (MAP) Pulse Ox O2 Delivery O2 Flow Rate FiO2 10/21/25 16:20 98.8 108 16 137/86 (103) 96 98.8 Exam Pt is lying on bed General Appearance: Alert, Oriented X3, Cooperative, Not in acute distress HEENT: Atraumatic, Mucous membranes moist/pink Respiratory: Clear to auscultation, Normal air movement, No added sounds Cardiovascular: Regular rate, Normal S1, Normal S2, No murmurs Abdominal: Hypoactive bowel sounds, distended but no tenderness Extremities: No edema, Normal pulses, No tenderness/swelling Skin: No Significant rash, except past surgical scars Neuro: Normal speech, sensorimotor deficits none Psych/Mental Status: Mental status NL, Mood NL Nurse was there as welcome wagon hostess during examination Labs/Xrays Labs Test 10/21/25 12:39 Range/Units White Blood Count 14.2 H 4.4-10.8 10^3/uL Red Blood Count 6.12 H 4.5-5.90 10^6/uL Hemoglobin 16.9 13.5-17.5 g/dL Hematocrit 52.3 41.0-53.0 % Mean Corpuscular Volume 85.4 80.0-100.0 fL Mean Corpuscular Hemoglobin 27.6 L 28.0-32.0 pg Mean Corpuscular Hemoglobin Concent 32.3 32.0-36.0 g/dL Red Cell Distribution Width 15.3 H 11.8-14.3 % Platelet Count 237 140-450 10^3/uL Mean Platelet Volume 7.3 6.9-10.8 fL Neutrophils (%) (Auto) 84.4 H 37.0-80.0 % Lymphocytes (%) (Auto) 9.6 L 10.0-50.0 % Monocytes (%) (Auto) 6.0 0.0-12.0 % Eosinophils (%) (Auto) 0.0 0.0-7.0 % Basophils (%) (Auto) 0.0 0.0-2.0 % Neutrophils # (Auto) 12.0 H 1.6-8.6 10 ^3/uL Lymphocytes # (Auto) 1.4 0.4-5.4 10 ^3/uL Monocytes # (Auto) 0.9 0-1.3 10 ^3/uL Eosinophils # (Auto) 0 0-0.8 10 ^3/uL Basophils # (Auto) 0 0-0.2 10 ^3/uL Nucleated Red Blood Cells 0.0 % Sodium Level 141 136-145 mmol/L Potassium Level 4.3 3.5-5.1 mmol/L Chloride Level 100 98-107 mmol/L Carbon Dioxide Level 30 20-31 mmol/L Anion Gap 11 5-15 Blood Urea Nitrogen 12 9-23 mg/dL Creatinine 1.16 0.700-1.30 mg/dL Glomerular Filtration Rate Calc 68 >90 mL/min BUN/Creatinine Ratio 10.3 10.0-20.0 Serum Glucose 167 H 74-106 mg/dL Calcium Level 11.1 H 8.7-10.4 mg/dL Magnesium Level 1.8 1.6-2.6 mg/dL Total Bilirubin 1.1 H 0.2-1.0 mg/dL Aspartate Amino Transferase (AST) 25 13-40 U/L Alanine Aminotransferase (ALT) 17 7-40 U/L Alkaline Phosphatase 110 46-116 U/L Total Protein 8.1 5.7-8.2 g/dL Albumin 4.9 H 3.2-4.8 g/dL Lipase 35 12-53 U/L SEPSIS Sepsis Screen Date sepsis recognized/suspect: Oct 21, 2025 Time Sepsis recognized/suspect: 1209 Recent Procedure: No On Antibiotic Therapy: No Respiratory Rate >20: No Heart Rate >90: Yes Temp<36 C (96.8 F) or >38.3 C: No SBP <90 or MAP <65 mmHG: No New Acute Mental Status Change: No Is the patient on CPAP, BIPAP,: No Physician Orders Ct Ab Pel With Iv Con Only (10/21/25 12:28) Heplock Iv (10/21/25 12:28) Blood Pressure (10/21/25 12:28) Electrocardigram (10/21/25 12:28) Ng To Lcs (10/21/25 15:03) Admit (10/21/25 18:17) Allergies (10/21/25 18:17) Code Status (10/21/25 18:17) Sodium Chloride Lock (Saline Lock Ns) (10/21/25 22:00) Sodium Chloride 0.9% (10/21/25 18:30) Oxygen Per Hour (10/21/25 18:17) Ondansetron Hcl (Zofran) (10/21/25 18:30) Enoxaparin Sodium (Lovenox) (10/22/25 10:00) Complete Blood Count (10/22/25 04:00) Comprehensive Metabolic Panel (10/22/25 04:00) Npo (Nothing By Mouth) Diet (10/21/25 Dinner) Condition: Fair (10/21/25 18:17) Acetaminophen Tablet (Tylenol Tablet) (10/21/25 18:30) Nitroglycerin Sublingual (Ntrostat Subli (10/21/25 18:30) Morphine Sulfate Injection (10/21/25 18:30) Oxygen By Nasal Cannula (10/21/25 18:17) Stat Ekg For Chest Pain (10/21/25 18:17) Notify Md Of Changes From Base (10/21/25 18:17) Window Trimmer Apprentice For 24 Hours (10/21/25 18:17) Emergency Dysrhythmia Protocol (10/21/25 18:17) Rhythm Strips Once Every Shift (10/21/25 18:17) Place Ng (10/21/25 18:17) Small Bowel Series-W Gastrogra (10/21/25 18:17) * Surgical Consult (10/21/25 ) Pantoprazole (Protonix) (10/21/25 18:30) Piperacillin-Tazob 3.375gm (Zosyn 3.375g (10/21/25 22:00) Lactic Acid W/ Reflex Order (10/21/25 18:17) Morphine Sulfate Injection (10/21/25 18:30) Npo Except Ice Chips (10/21/25 18:17) Urinalysis (10/21/25 18:17) B-Type Natriuretic Peptide (10/21/25 18:17) Thyroid Stimulating Hormone (10/21/25 18:17) PTPTT (10/21/25 18:17) D-Dimer (10/21/25 18:17) Chest Xray 1 View (10/21/25 18:28) Glucose Blood (Accu-Chek Comfort Curve T (10/22/25 00:00) Insulin R (Human) (Insulin R) (10/22/25 00:00) Dextrose 50% Syringe (10/21/25 18:30) Amlodipine Tablet (Norvasc Tablet) (10/21/25 18:30) Electrocardigram (10/21/25 18:29) * Gi Dvh Pipeline Operator (10/21/25 18:33) Vital Signs Date Time Temp Pulse Resp B/P (MAP) Pulse Ox O2 Delivery O2 Flow Rate FiO2 10/21/25 16:20 98.8 108 16 137/86 (103) 96 98.8 10/21/25 14:07 110 10/21/25 12:06 98.5 120 18 158/102 92 98.5 Laboratory Tests Test 10/21/25 12:39 White Blood Count 14.2 10^3/uL (4.4-10.8) H Assessment/Plan Assessment/Plan Cassie presents with acute onset abdominal bloating and vomiting that began last night, with similar episode occurring 3 years ago requiring gastric decompression. Possible sepsis due to below Probable small bowel obstruction Possible gastroenteritis Rule out colonic malignancy Plan: - Place nasogastric tube for gastric decompression - CT abdominal pelvis showed Fluid-filled Distended Small bowel loops measuring up to 3.9 cm, Segmental wall thickening of the ascending colon adjacent to the ileocecal valve. - Obtain small bowel series imaging to identify transition point and location of obstruction - Surgical consultation - GI consult for possible colonoscopy - Zosyn - Protonix and Zofran - NPO except ice chips - IV fluids Acute hypoxic respiratory failure unspecified Plan: - on 2 L NC - Monitor oxygen levels - CXR pending Type 2 DM Plan: - Accu-Cheks nd ISS -HbA1c GI PPX: Protonix VTE ppx: Lovenox Diet: cardiac Goals of care addressed with the patient for more than 27 minutes: Full code status Case discussed with Dr. Dudley, patient and nurse Plan discussed with: Patient, Spouse My Orders Orders - POWER CANALES RESIDENT Procedure Category Date Status Time Admit ADMIT 10/21/25 Transmitted 18:17 Allergies MOOSE 10/21/25 In Process 18:17 Code Status CODE 10/21/25 Transmitted 18:17 Sodium Chloride Lock PHA 10/21/25 In Process (Saline Lock Ns) 22:00 Sodium Chloride 0.9% PHA 10/21/25 In Process 18:30 Oxygen Per Hour RT 10/21/25 Transmitted 18:17 Ondansetron Hcl PHA 10/21/25 In Process (Zofran) 18:30 Enoxaparin Sodium PHA 10/22/25 Logged (Lovenox) 10:00 Complete Blood Count LAB 10/22/25 Verified 04:00 Comprehensive LAB 10/22/25 Verified Metabolic Panel 04:00 Npo (Nothing By DIET 10/21/25 Transmitted Mouth) Diet Dinner Condition: Fair MOOSE 10/21/25 In Process 18:17 Acetaminophen Tablet PHA 10/21/25 In Process (Tylenol Tablet) 18:30 Nitroglycerin PHA 10/21/25 In Process Sublingual (Ntrostat 18:30 Morphine Sulfate PHA 10/21/25 Logged Injection 18:30 Oxygen By Nasal RT 10/21/25 Transmitted Cannula 18:17 Stat Ekg For Chest MOOSE 10/21/25 In Process Pain 18:17 Notify Md Of Changes MOOSE 10/21/25 In Process From Base 18:17 Window Trimmer Apprentice For MOOSE 10/21/25 In Process 24 Hours 18:17 Emergency Dysrhythmia MOOSE 10/21/25 In Process Protocol 18:17 Rhythm Strips Once MOOSE 10/21/25 In Process Every Shift 18:17 Place Ng ORDERS 10/21/25 Transmitted 18:17 Small Bowel Series-W XY 10/21/25 Logged Gastrogra 18:17 * Surgical Consult CONS 10/21/25 Transmitted Pantoprazole PHA 10/21/25 In Process (Protonix) 18:30 Piperacillin-Tazob PHA 10/21/25 Logged 3.375gm (Zosyn 3.375g 22:00 Lactic Acid W/ Reflex LAB 10/21/25 Logged Order 18:17 Morphine Sulfate PHA 10/21/25 Logged Injection 18:30 Npo Except Ice Chips MOOSE 10/21/25 In Process 18:17 Urinalysis LAB 10/21/25 Logged 18:17 B-Type Natriuretic LAB 10/21/25 In Process Peptide 18:17 Thyroid Stimulating LAB 10/21/25 In Process Hormone 18:17 PTPTT LAB 10/21/25 Logged 18:17 D-Dimer LAB 10/21/25 Logged 18:17 Chest Xray 1 View XY 10/21/25 Logged 18:28 Glucose Blood PHA 10/22/25 Logged (Accu-Chek Comfort 00:00 Insulin R (Human) PHA 10/22/25 Logged (Insulin R) 00:00 Dextrose 50% Syringe PHA 10/21/25 Logged 18:30 Amlodipine Tablet PHA 10/21/25 Logged (Norvasc Tablet) 18:30 Electrocardigram EKG 10/21/25 Logged 18:29 * Gi Dvh Pipeline Operator CONS 10/21/25 Transmitted 18:33 Visit Coding STANDARD RES Billing Provider: MIKAYLA DUDLEY MD Date of Service if different f: Oct 21, 2025 Common Visit Codes: [id number] INP/OBS CARE (HIGH) Secondary Visit Codes: [id number] CARE PLAN 30 MINUTES POWER CANALES RESIDENT Oct 21, 2025 18:39
[2025-10-21] MEDS: PIPERACILLIN-TAZOB 3.375GM 100 ML IV ONE (18:45)
--- NOTE | 2025-10-21 19:15 | DVH ---
CHEST RADIOGRAPH INDICATION: sob TECHNIQUE: Single frontal view of the chest was obtained COMPARISON: CHEST XRAY 1 VIEW on DOS: 10/21/22, CHEST PORTABLE on DOS: 10/21/22, CXR1 on DOS: 10/21/22 FINDINGS: Lines and Tubes: None Lungs: No focal consolidation. Pleura: No effusion. No pneumothorax. Cardiomediastinal contours: Unremarkable Bones: No acute osseous abnormality. IMPRESSION: 1. No acute cardiopulmonary disease. 2. Circular collection 8 round foreign bodies over the right upper quadrant. 3. No infiltrates or effusions.
[2025-10-21 19:30] LABS: INR 1.03 (0.9-1.15); Partial Thromboplastin Time 27.6 SEC (24.5-34.5); Prothrombin Time 10.9 sec (9.3-11.8)
[2025-10-21 19:57] LABS: Lactic Acid w/Reflex 2.4 mmol/L (0.4-2.0)
[2025-10-21 20:42] VITALS: PULSE 101; RESP 18; O2SAT 96
[2025-10-21 21:00] VITALS: BP 130/85; PULSE 94; RESP 18; TEMP 98.2; O2SAT 93
[2025-10-21 21:53] VITALS: BP 130/85; PULSE 94; RESP 18; TEMP 98.2; O2SAT 93
[2025-10-21] MEDS: SODIUM CHLOR 0.9% PF (SALINE LOCK) 10ML VIAL/SYR IV SCH (21:59)
[2025-10-21] MEDS: SODIUM CHLORIDE 0.9% 1,000 ML IV SCH (22:33)
[2025-10-21] MEDS: PANTOPRAZOLE 40 MG/10 ML VIAL INJ IV SCH (22:33)
[2025-10-21] MEDS: PIPERACILLIN-TAZOB 3.375GM 100 ML IV SCH (23:56)
[2025-10-21] MEDS: ACCU-CHEK COMFORT CURVE STRIP VI SCH (23:59)
[2025-10-22] MEDS: InsuLIN REG 1unit/0.01ml Soln (100units/ml) SC SCH
--- NOTE | 2025-10-22 00:35 | DVH ---
CHEST RADIOGRAPH INDICATION: NG tube placement TECHNIQUE: Single frontal view of the chest was obtained COMPARISON: XY CHEST XRAY 1 VIEW on DOS: 10/21/25, CT CHEST WITHOUT CONTRAST on DOS: 03/05/24, CHEST XRAY 1 VIEW on DOS: 10/21/22, CHEST PORTABLE on DOS: 10/21/22, CXR1 on DOS: 10/21/22 FINDINGS: Lines and Tubes: New enteric catheter courses below the level of the diaphragm and terminates beyond the inferior margin of the image. Lungs: Clear Pleura: No effusion. No pneumothorax. Cardiomediastinal contours: Unremarkable Bones: Unremarkable IMPRESSION: 1. Enteric catheter terminates beyond the inferior margin of the image. 2. No acute cardiopulmonary process.
[2025-10-22 00:36] LABS: Urine Protein, UAD 1+ (Negative)
[2025-10-22 01:00] VITALS: BP 127/80; PULSE 89; RESP 15; TEMP 98; O2SAT 96
[2025-10-22] MEDS ORDERED: ATOR20TA PO (01:37)
[2025-10-22] MEDS ORDERED: LOSA-535 PO (01:37)
[2025-10-22] MEDS ORDERED: METF-370 PO (01:37)
[2025-10-22] MEDS ORDERED: AMLO1TAB23 PO (01:37)
--- NOTE | 2025-10-22 01:52 | DVH ---
CHEST RADIOGRAPH INDICATION: NG Tube placement TECHNIQUE: Single frontal view of the chest was obtained COMPARISON: XY CHEST XRAY 1 VIEW on DOS: 10/21/25, XY CHEST XRAY 1 VIEW on DOS: 10/21/25, CHEST XRAY 1 VIEW on DOS: 10/21/22, CHEST PORTABLE on DOS: 10/21/22, CXR1 on DOS: 10/21/22 FINDINGS: Lines and Tubes: Interval retraction of the enteric catheter such that the tip now projects within the mid to distal esophagus Lungs: Clear Pleura: No effusion. No pneumothorax. Cardiomediastinal contours: Unremarkable Bones: Unremarkable IMPRESSION: 1. Interval retraction of the enteric catheter such that the tip now projects within the mid to distal esophagus. Advancement is recommended. 2. No acute cardiopulmonary process.
--- NOTE | 2025-10-22 03:09 | DVH ---
CHEST RADIOGRAPH INDICATION: NG Tube Placement TECHNIQUE: Single frontal view of the chest was obtained COMPARISON: XY CHEST XRAY 1 VIEW on DOS: 10/22/25, XY CHEST XRAY 1 VIEW on DOS: 10/21/25, XY CHEST XRAY 1 VIEW on DOS: 10/21/25, CT CHEST WITHOUT CONTRAST on DOS: 03/05/24, CHEST XRAY 1 VIEW on DOS: 10/21/22 FINDINGS: Lines and Tubes: Interval advancement of enteric catheter with tip now projecting within the gastric lumen. Lungs: Clear Pleura: No effusion. No pneumothorax. Cardiomediastinal contours: Unremarkable Bones: Unremarkable IMPRESSION: 1. Interval advancement of enteric catheter with tip now projecting within the gastric lumen. 2. No evidence of acute cardiopulmonary process.
[2025-10-22 05:00] VITALS: BP 114/71; PULSE 84; RESP 18; TEMP 98.2; O2SAT 96
[2025-10-22 06:51] LABS: Hematocrit 46.0 % (41.0-53.0); Hemoglobin 15.1 g/dL (13.5-17.5); Mean Corpuscular Hemoglobin 27.9 pg (28.0-32.0); Mean Corpuscular Volume 85.0 fL (80.0-100.0); Nucleated Red Blood Cells % 0.1 %
[2025-10-22 07:02] LABS: Alanine Aminotransferase 15 U/L (7-40); Albumin 4.2 g/dL (3.2-4.8); Alkaline Phosphatase 87 U/L (46-116); Anion Gap 10 (5-15); BUN/Creatinine Ratio 13.1 (10.0-20.0); Blood Urea Nitrogen 16 mg/dL (9-23); Calcium 10.1 mg/dL (8.7-10.4); Carbon Dioxide 31 mmol/L (20-31); Chloride 101 mmol/L (98-107); Potassium 4.3 mmol/L (3.5-5.1); Sodium 142 mmol/L (136-145); Total Protein 6.9 g/dL (5.7-8.2)
[2025-10-22 07:10] LABS: Bilirubin, Total 1.8 mg/dL (0.2-1.0); Glucose 122 mg/dL (74-106)
[2025-10-22 09:00] VITALS: BP 107/69; PULSE 79; RESP 18; TEMP 98; O2SAT 91
[2025-10-22] MEDS: ENOXAPARIN SOD 40 MG/0.4 ML SYRINGE SC SCH (09:39)
--- NOTE | 2025-10-22 12:56 | DVHINCON2 ---
Consultation - Surgical Date Seen: Oct 22, 2025 Referring Physician Reason for Consultation Possible partial SBO History of Present Illness History of Present Illness Mr. Zia Pfeiffer is a 70-year-old male presented yesterday to the hospital with abdominal distention, nausea, and vomiting that started on Sunday night. Patient states he ate some tamales at home and later that night he got bloated, then on Sunday after showering he started experiencing nausea and vomiting. States that his last bowel movement was on Sunday, which was is normal, no changes in stool caliber, no blood. States that he normally goes to the bathroom for bowel movements daily. Denies any fevers, chills, changes in urinary habits. Patient denies being recently sick or being exposed to anybody sick. Patient states that he has not eaten anything out of the ordinary. States that this happened to him also back in 2021, he does not have any surgical history. His most recent colonoscopy was in 2019 and it was negative, he has had multiple and they have all been negative. Patient denies any weight loss, loss of appetite, personal or family history of cancer. Past Medical/Surgical History Past Medical/Surgical History PMH diabetes, hypertension, hyperlipidemia, bilateral fat containing inguinal hernias PSH denies Family and Social History Family and Social History Family history noncontributory ETOH denies new line T Ob quit approximately 40 years ago, smoked for 12 years 1 pack a day Drugs denies Allergies and medications Allergies: Coded Allergies: NO KNOWN ALLERGIES (Unverified , 10/21/22) Home Meds Reported Medications Atorvastatin Calcium (Lipitor) 20 Mg Tab, 1 TAB PO DAILY, #90 TAB 1 Refill 10/22/25 Metformin Hydrochloride (Metformin Hcl) 500 Mg Tab, 1 TAB PO DAILY, #60 TAB 3 Refills 10/22/25 Amlodipine Besylate (Amlodipine Besylate) 10 Mg Tab, 1 TAB PO DAILY, #30 TAB 5 Refills 10/22/25 Losartan Potassium (Losartan Potassium) 100 Mg Tab, 1 TAB PO DAILY, #30 TAB 5 Refills 10/22/25 Review of systems Review of Systems: HEENT:Normal, CVS:Normal, RESPIRATORY:Normal, GI:Abnormal (See HPI), :Normal, MSK:Normal, NEURO:Normal Examination Vital signs Vital Signs Date Time Temp Pulse Resp B/P (MAP) Pulse Ox O2 Delivery O2 Flow Rate FiO2 10/22/25 09:42 107/69 10/22/25 09:00 98.0 79 18 91 98.0 10/22/25 08:00 Room Air* 0 21 Medications Current Medications Medications (Trade) Dose Ordered Sig/Esha Route PRN Reason Start Time Stop Time Status Last Admin Sodium Chloride (Saline Lock Ns) 10 ml Q8HR IV 10/21/25 22:00 10/22/25 05:09 Sodium Chloride 1,000 ml @ 100 mls/hr Q10H IV 10/21/25 18:30 10/21/25 22:33 Ondansetron HCl (Zofran) 4 mg Q4HP PRN IV NAUSEA / VOMITING 10/21/25 18:30 Enoxaparin Sodium (Lovenox) 40 mg DAILY SC 10/22/25 10:00 10/22/25 09:39 Acetaminophen (Tylenol Tablet) 650 mg Q6HP PRN PO PAIN SCALE 1-3 OR TEMP>100.4 10/21/25 18:30 Nitroglycerin (Ntrostat Sublingual) 0.4 mg Q5MINP PRN SL FOR CHEST PAIN 10/21/25 18:30 Morphine Sulfate 2 mg Q30M PRN IV FOR CHEST PAIN 10/21/25 18:30 Pantoprazole Sodium (Protonix) 40 mg DAILY IV 10/21/25 18:30 10/22/25 09:38 Piperacillin Sod/ Tazobactam Sod 100 ml @ 25 mls/hr Q8H IV 10/22/25 00:00 10/22/25 09:37 Morphine Sulfate 1 mg Q4HP PRN IV SEVERE PAIN (7-10 PAIN SCALE) 10/21/25 18:30 Diagnostic Test (Pha) (Accu-Chek Comfort Curve T) 1 strip Q6HR 10/22/25 00:00 10/22/25 05:09 Insulin Human Regular (InsuLIN R) Q6HR SC 10/22/25 00:00 Dextrose 50 ml UD PRN IV Blood Sugar LESS THAN 60 10/21/25 18:30 Amlodipine Besylate (Norvasc Tablet) 5 mg DAILY PO 10/21/25 18:30 10/22/25 09:42 Laboratory Labs Test 10/22/25 05:04 10/22/25 04:44 10/21/25 23:54 10/21/25 20:56 Range/Units POC Glucose 125 H 70-106 mg/dl White Blood Count 7.5 # 4.4-10.8 10^3/uL Red Blood Count 5.42 4.5-5.90 10^6/uL Hemoglobin 15.1 13.5-17.5 g/dL Hematocrit 46.0 # 41.0-53.0 % Mean Corpuscular Volume 85.0 80.0-100.0 fL Mean Corpuscular Hemoglobin 27.9 L 28.0-32.0 pg Mean Corpuscular Hemoglobin Concent 32.9 32.0-36.0 g/dL Red Cell Distribution Width 15.0 H 11.8-14.3 % Platelet Count 205 140-450 10^3/uL Mean Platelet Volume 7.7 6.9-10.8 fL Neutrophils (%) (Auto) 64.5 37.0-80.0 % Lymphocytes (%) (Auto) 21.9 10.0-50.0 % Monocytes (%) (Auto) 12.7 H 0.0-12.0 % Eosinophils (%) (Auto) 0.7 0.0-7.0 % Basophils (%) (Auto) 0.2 0.0-2.0 % Neutrophils # (Auto) 4.8 1.6-8.6 10 ^3/uL Lymphocytes # (Auto) 1.6 0.4-5.4 10 ^3/uL Monocytes # (Auto) 1.0 0-1.3 10 ^3/uL Eosinophils # (Auto) 0.1 0-0.8 10 ^3/uL Basophils # (Auto) 0 0-0.2 10 ^3/uL Nucleated Red Blood Cells 0.1 % Sodium Level 142 136-145 mmol/L Potassium Level 4.3 3.5-5.1 mmol/L Chloride Level 101 98-107 mmol/L Carbon Dioxide Level 31 20-31 mmol/L Anion Gap 10 5-15 Blood Urea Nitrogen 16 9-23 mg/dL Creatinine 1.22 0.700-1.30 mg/dL Glomerular Filtration Rate Calc 64 >90 mL/min BUN/Creatinine Ratio 13.1 10.0-20.0 Serum Glucose 122 H 74-106 mg/dL Calcium Level 10.1 8.7-10.4 mg/dL Total Bilirubin 1.8 H 0.2-1.0 mg/dL Aspartate Amino Transferase (AST) 25 13-40 U/L Alanine Aminotransferase (ALT) 15 7-40 U/L Alkaline Phosphatase 87 46-116 U/L Total Protein 6.9 5.7-8.2 g/dL Albumin 4.2 3.2-4.8 g/dL Urine Color Yellow Yellow Urine Clarity Clear Clear Urine pH 5.5 5.0-9.0 Urine Specific [place] 1.030 1.001-1.035 Urine Protein 1+ H Negative Urine Ketones Trace Negative Urine Blood Negative Negative /uL Urine Nitrite Negative Negative Urine Bilirubin Negative Negative Urine Urobilinogen Normal Negative mg/dL Urine Leukocyte Esterase Negative Negative /uL Urine RBC 3 0 - 3 /hpf Urine Microscopic WBC 1 0-3 /HPF Urine Squamous Epithelial Cells Few <5 /hpf Urine Bacteria None seen None Seen /hpf Urine Mucus Few None Seen Urine Glucose Normal Normal mg/dL Lactic Acid Level 2.1 *H 0.4-2.0 mmol/L Test 10/21/25 19:05 10/21/25 12:39 Range/Units Prothrombin Time 10.9 9.3-11.8 sec Prothrombin Time INR 1.03 0.9-1.15 Activated Partial Thromboplast Time 27.6 24.5-34.5 SEC D-Dimer, Quantitative 1.33 H 0.0-0.49 mg/L FEU Magnesium Level 1.8 1.6-2.6 mg/dL B-Type Natriuretic Peptide 15.03 0-100 pg/mL Lipase 35 12-53 U/L Thyroid Stimulating Hormone (TSH) 2.57 0.55-4.78 uIU/mL Examination: GENERAL:Normal (AAO x3), HEENT:Normal (NG tube in place, no output in canister), LUNGS:Normal (Nonlabored breathing with symmetric expansion), ABDOMEN:Abnormal (Distended, no masses, no scars, soft and depressible, nontender) Problem List/Assessment/Plan Problems: (1) Small bowel obstruction Assessment and Plan Mr. Rome is a 70-year-old male who presents with partial small bowel obstruction versus ileus. CT shows multiple distended loops of small bowel and multiple normal-appearing small bowel segments, also on CT there is thickening of the gastric wall and thickening of the ileocecal valve area. We will treat with decompression at this time. NG tube that was in place was too small, it was not draining and it was clogged, I tried flushing it an aspirating it and it did not work. I asked the nurse for replacement of the tube with a 18 Arabic t ube. 1. Replaced NG tube with a [address] NG tube to continuous suction initially, once he stops draining, placed it at low intermittent suctioned 3. Recommend GI consultation for thickening seen at the ileocecal valve 4. NPO 5 maintenance IV fluids Plan discussed with Plan discussed with: Patient Visit Coding Surgery Date of Service if different f: Oct 22, 2025 Billing Provider: LACIE SAUNDERS MD Surgery Visit Codes: 82809 - INP CONSULT <110 MIN LACIE SAUNDERS MD Oct 22, 2025 12:56
[2025-10-22 13:00] VITALS: BP 111/77; PULSE 82; RESP 18; TEMP 97.8; O2SAT 91
--- NOTE | 2025-10-22 13:02 | DVH ---
CHEST RADIOGRAPH INDICATION: CONFIRM NG PLACEMENT TECHNIQUE: Single frontal view of the chest was obtained COMPARISON: XY CHEST XRAY 1 VIEW on DOS: 10/22/25, XY CHEST XRAY 1 VIEW on DOS: 10/22/25, XY CHEST XRAY 1 VIEW on DOS: 10/21/25, XY CHEST XRAY 1 VIEW on DOS: 10/21/25, CHEST XRAY 1 VIEW on DOS: 10/21/22 FINDINGS: Lines and Tubes: NG tube coiled in the distal esophagus and should be repositioned. Lungs: Clear Pleura: No effusion. No pneumothorax. Cardiomediastinal contours: Unremarkable Bones: Unremarkable IMPRESSION: 1. NG tube coiled in the distal esophagus and should be reposition.
--- NOTE | 2025-10-22 13:15 | DVHPNRES ---
Progress Note Date Seen: Oct 22, 2025 Resident Creating Document: INGRID STILES RESIDENT Medical Necessity Reason Pt with a Central, PICC or Fol: No Subjective Review of Systems Mr. Rome is a 70 year old male with prior medical history of hypertension, type 2 diabetes mellitus, and hyperlipidemia, who presented to [facility] with chief complaint of abdominal bloating and vomiting. The patient refers that on Sunday he began to have abdominal bloating associated with constant epigastric pain described as sharp, 9/10 intensity, associated with vomiting containing gastric contents, no passing of gas, and constipation with last bowel movement being the night before symptoms began. Due to persistence of symptoms she presented to the emergency department for evaluation. On evaluation in the ED, patient was afebrile, tachycardic, hypertensive, and saturating adequately on 2L NC supplemental O2. Initial labs were significant for leukocytosis with neutrophilia, hyperglycemia, elevated lactic acid, and elevated D-dimer. CT Abdomen/Pelvis shows fluid filled distended small bowel loops measuring up to 3.9 cm, mild wall thickening of the mid stomach which may be due to inadequate distention/gastritis, segmental wall thickening of the ascending colon adjacent to the ileocecal valve. NG tube was placed for decompression, patient was placed on NPO, IV antibiotics, and general surgery and GI have been consulted. He was admitted for further work up and monitoring. Prior Surgical History: Denies Allergies: Denies Social: Denies previous drug and alcohol use. Refers he smoked cigarettes with cessation 35 years ago. States he lives with his and feels safe. 10/22/2025: Patient seen at bedside. He states he is well, uncomfortable due to abdominal distension, but denies any pain. Refers he has began to pass gas, however, no bowel movements as of yet. He is afebrile, normocardic, normotensive, saturating adequately on room air, with NG tube in place. Follow up labs significant for resolved leukocytosis, downtrending lactic acid, and mild hyperglycemia. Patient is pending evaluation by general surgery and GI. Review of Systems: Constitutional: Denies weight loss, fever and chills. HEENT: Denies changes in vision and hearing. Respiratory: Denies shortness of breath and cough Cardiovascular: Denies chest discomfort or palpitations GI: Refers abdominal distension and constipation, denies abdominal pain : Denies dysuria and urinary frequency. Musculoskeletal: denies symptoms Skin: Denies rash and pruritus. Neurological: denies dizziness headache vision or hearing problems Objective vital signs Vital Sign Date Time Temp Pulse Resp B/P (MAP) Pulse Ox O2 Delivery O2 Flow Rate FiO2 10/22/25 09:42 107/69 10/22/25 09:00 98.0 79 18 91 98.0 10/22/25 08:00 Room Air* 0 21 Total Intake and Output 10/21/25 10/21/25 10/22/25 15:00 23:00 07:00 Intake Total 100 ml Output Total 0 ml Balance 100 ml medications Current Medications Medications Dose Ordered Sig/Esha Route Start Time Stop Time Status Last Admin Dose Admin Sodium Chloride 10 ml Q8HR IV 10/21/25 22:00 10/22/25 05:09 10 ML Sodium Chloride 1,000 ml @ 100 mls/hr Q10H IV 10/21/25 18:30 10/21/25 22:33 100 MLS/HR Ondansetron HCl 4 mg Q4HP PRN IV 10/21/25 18:30 Enoxaparin Sodium 40 mg DAILY SC 10/22/25 10:00 10/22/25 09:39 40 MG Pantoprazole Sodium 40 mg DAILY IV 10/21/25 18:30 10/22/25 09:38 40 MG Piperacillin Sod/ Tazobactam Sod 100 ml @ 25 mls/hr Q8H IV 10/22/25 00:00 10/22/25 09:37 25 MLS/HR Diagnostic Test (Pha) 1 strip Q6HR 10/22/25 00:00 10/22/25 05:09 1 STRIP Insulin Human Regular Q6HR SC 10/22/25 00:00 Dextrose 50 ml UD PRN IV 10/21/25 18:30 Amlodipine Besylate 5 mg DAILY PO 10/21/25 18:30 10/22/25 09:42 5 MG Ketorolac Tromethamine 15 mg Q6HPRN PRN IV 10/22/25 13:00 10/27/25 12:59 Examination General: The patient alert and oriented in person place and time. Patient following commands HEENT: Normocephalic, atraumatic, normal reactive pupils, EOM intact, pink conjunctiva, pink moist mucous membrane, NG tube in right nare Respiratory/pulmonary: Bilateral chest expansion, no pain on palpation of chest wall, clear lungs bilaterally, vesicular murmurs present in almost all lung correa, no associated crackles or wheezes. Cardiovascular: Normal RRR, normal S1 and S2, no murmurs Abdomen: Abdomen distended, absent bowel sounds, tympanic on percussion, soft, there is no pain to palpation in any of the abdominal quadrants, no palpable masses. Extremities: No deformities, there is no peripheral edema present at the lower extremities, normal pulses Skin: No rashes or pruritus, there is no sacral edema present at this time. Neurological: Intact cranial nerves with no focal neurologic deficits laboratory and microbiology Laboratory Tests 10/22/25 04:44 Test 10/22/25 04:44 Range/Units Serum Glucose 122 H 74-106 mg/dL Problem List/Assessment/Plan Problem List/Assessment/Plan Assessment and Plan: Possible Small Bowel Obstruction Lactic acidosis likely due to above Sepsis, ruled out Gastroenteritis, ruled out - CT A/P: Fluid-filled Distended Small bowel loops measuring up to 3.9 cm. Correlate for bowel obstruction/ ileus. Segmental wall thickening of the ascending colon adjacent to the ileocecal valve. Colonoscopy is recommended to exclude neoplasm. - Patient placed NPO - Zosyn 3.375 mg IV q 8 hours - Morphine discontinued - Toradol 15 mg IV q 6 hours PRN - NS 100 cc/hr IV - General surgery has been consulted - GI has been consulted Questionable acute hypoxic respiratory failure, resolved - 2L NC, now removed Hypertension - Monitor BP - Resume Losartan and Amlodipine when NPO lifted Type 2 Diabetes Mellitus with hyperglycemia, HbA1c 6.3 - NPO sliding scale - Consistent carbohydrate diet when NPO lifted - Accu-cheks Nutrition: NPO DVT prophylaxis: Lovenox 40 mg SC daily GI prophylaxis: Protonix 40 mg IV daily Case discussed with Dr. Ojeda Plan discussed with: Patient, Other (Nurse) My Orders My Orders Orders - INGRID STILES RESIDENT Procedure Category Date Status Time Ketorolac Injection PHA 10/22/25 In Process (Toradol Injection) 13:00 Visit Coding STANDARD RES Billing Provider: DORYS OJEDA MD Date of Service if different f: Oct 22, 2025 INGRID STILES RESIDENT Oct 22, 2025 13:15
--- NOTE | 2025-10-22 14:48 | DVH ---
CLINICAL HISTORY: NG tube placement confirmation TECHNIQUE: 1 view of the chest was obtained. WID: COMPARISON: XY CHEST PORTABLE on DOS: 10/22/25, XY CHEST XRAY 1 VIEW on DOS: 10/22/25, XY CHEST XRAY 1 VIEW on DOS: 10/22/25, XY CHEST XRAY 1 VIEW on DOS: 10/21/25, XY CHEST XRAY 1 VIEW on DOS: 10/21/25 FINDINGS: Lungs: Trace septal thickening. Minimal subsegmental atelectasis. Cardiomediastinal silhouette: normal in size Bones: No acute osseous abnormality. Imaged Upper Abdomen: Suction type enteric tube is coiled in the stomach.. IMPRESSION: Enteric tube is in the proximal stomach. Pulmonary vascular congestion
[2025-10-22 17:21] VITALS: BP 121/76; PULSE 75; RESP 18; TEMP 97.4; O2SAT 91
[2025-10-22 21:00] VITALS: BP 121/84; PULSE 82; RESP 18; TEMP 98.4; O2SAT 94
--- NOTE | 2025-10-22 21:57 | DVHINCON2 ---
Date of service: Oct 22, [address] Martínez Reason for Consultation Possible SBO History of Present Illness Mr. Zia Pfeiffer is a 70-year-old male presented yesterday to the hospital with abdominal distention, nausea, and vomiting that started on Sunday night. Patient states he ate some tamales at home and later that night he got bloated, then on Sunday after showering he started experiencing nausea and vomiting. States that his last bowel movement was on Sunday, which was is normal, no changes in stool caliber, no blood. States that he normally goes to the bathroom for bowel movements daily. Denies any fevers, chills, changes in urinary habits. Patient denies being recently sick or being exposed to anybody sick. Patient states that he has not eaten anything out of the ordinary. States that this happened to him also back in 2021, he does not have any surgical history. His most recent colonoscopy was in 2019 and it was negative, he has had multiple and they have all been negative. Patient denies any weight loss, loss of appetite, personal or family history of cancer. Past Medical History Past Medical/Surgical History Past Medical/Surgical History PMH diabetes, hypertension, hyperlipidemia, bilateral fat containing inguinal hernias PS denies Family History: Hypertension G8 MOTHER Patient's father is Allergies: Coded Allergies: NO KNOWN ALLERGIES (Unverified , 10/21/22) Home Meds Reported Medications Atorvastatin Calcium (Lipitor) 20 Mg Tab, 1 TAB PO DAILY, #90 TAB 1 Refill 10/22/25 Metformin Hydrochloride (Metformin Hcl) 500 Mg Tab, 1 TAB PO DAILY, #60 TAB 3 Refills 10/22/25 Amlodipine Besylate (Amlodipine Besylate) 10 Mg Tab, 1 TAB PO DAILY, #30 TAB 5 Refills 10/22/25 Losartan Potassium (Losartan Potassium) 100 Mg Tab, 1 TAB PO DAILY, #30 TAB 5 Refills 10/22/25 Current Medications Current Medications Medications (Trade) Dose Ordered Sig/Ehsa Route PRN Reason Start Time Stop Time Status Last Admin Sodium Chloride (Saline Lock Ns) 10 ml Q8HR IV 10/21/25 22:00 10/22/25 13:15 Enoxaparin Sodium (Lovenox) 40 mg DAILY SC 10/22/25 10:00 10/22/25 09:39 Piperacillin Sod/ Tazobactam Sod 100 ml @ 25 mls/hr Q8H IV 10/22/25 00:00 10/22/25 16:36 Diagnostic Test (Pha) (Accu-Chek Comfort Curve T) 1 strip Q6HR 10/22/25 00:00 10/22/25 18:08 Insulin Human Regular (InsuLIN R) Q6HR SC 10/22/25 00:00 Ketorolac Tromethamine (Toradol Injection) 15 mg Q6HPRN PRN IV MILD PAIN (1-3 PAIN SCALE) 10/22/25 13:00 10/27/25 12:59 Vital Signs Vital Signs Date Time Temp Pulse Resp B/P (MAP) Pulse Ox O2 Delivery O2 Flow Rate FiO2 10/22/25 21:00 98.4 82 18 121/84 (96) 94 98.4 10/22/25 20:00 Room Air* 0 21 Physical Exam General: The patient alert and oriented in person place and time. Patient following commands HEENT: Normocephalic, atraumatic, normal reactive pupils, EOM intact, pink conjunctiva, pink moist mucous membrane, NG tube in right nare Respiratory/pulmonary: Bilateral chest expansion, no pain on palpation of chest wall, clear lungs bilaterally, vesicular murmurs present in almost all lung correa, no associated crackles or wheezes. Cardiovascular: Normal RRR, normal S1 and S2, no murmurs Abdomen: Abdomen distended, absent bowel sounds, tympanic on percussion, soft, there is no pain to palpation in any of the abdominal quadrants, no palpable masses. Extremities: No deformities, there is no peripheral edema present at the lower extremities, normal pulses Skin: No rashes or pruritus, there is no sacral edema present at this time. Neurological: Intact cranial nerves with no focal neurologic deficits laboratory and microbiology Labs/Diagnostic Data Labs Test 10/22/25 13:16 10/22/25 04:44 10/21/25 23:54 10/21/25 20:56 Range/Units POC Glucose 106 70-106 mg/dl White Blood Count 7.5 # 4.4-10.8 10^3/uL Red Blood Count 5.42 4.5-5.90 10^6/uL Hemoglobin 15.1 13.5-17.5 g/dL Hematocrit 46.0 # 41.0-53.0 % Mean Corpuscular Volume 85.0 80.0-100.0 fL Mean Corpuscular Hemoglobin 27.9 L 28.0-32.0 pg Mean Corpuscular Hemoglobin Concent 32.9 32.0-36.0 g/dL Red Cell Distribution Width 15.0 H 11.8-14.3 % Platelet Count 205 140-450 10^3/uL Mean Platelet Volume 7.7 6.9-10.8 fL Neutrophils (%) (Auto) 64.5 37.0-80.0 % Lymphocytes (%) (Auto) 21.9 10.0-50.0 % Monocytes (%) (Auto) 12.7 H 0.0-12.0 % Eosinophils (%) (Auto) 0.7 0.0-7.0 % Basophils (%) (Auto) 0.2 0.0-2.0 % Neutrophils # (Auto) 4.8 1.6-8.6 10 ^3/uL Lymphocytes # (Auto) 1.6 0.4-5.4 10 ^3/uL Monocytes # (Auto) 1.0 0-1.3 10 ^3/uL Eosinophils # (Auto) 0.1 0-0.8 10 ^3/uL Basophils # (Auto) 0 0-0.2 10 ^3/uL Nucleated Red Blood Cells 0.1 % Sodium Level 142 136-145 mmol/L Potassium Level 4.3 3.5-5.1 mmol/L Chloride Level 101 98-107 mmol/L Carbon Dioxide Level 31 20-31 mmol/L Anion Gap 10 5-15 Blood Urea Nitrogen 16 9-23 mg/dL Creatinine 1.22 0.700-1.30 mg/dL Glomerular Filtration Rate Calc 64 >90 mL/min BUN/Creatinine Ratio 13.1 10.0-20.0 Serum Glucose 122 H 74-106 mg/dL Calcium Level 10.1 8.7-10.4 mg/dL Total Bilirubin 1.8 H 0.2-1.0 mg/dL Aspartate Amino Transferase (AST) 25 13-40 U/L Alanine Aminotransferase (ALT) 15 7-40 U/L Alkaline Phosphatase 87 46-116 U/L Total Protein 6.9 5.7-8.2 g/dL Albumin 4.2 3.2-4.8 g/dL Urine Color Yellow Yellow Urine Clarity Clear Clear Urine pH 5.5 5.0-9.0 Urine Specific [place] 1.030 1.001-1.035 Urine Protein 1+ H Negative Urine Ketones Trace Negative Urine Blood Negative Negative /uL Urine Nitrite Negative Negative Urine Bilirubin Negative Negative Urine Urobilinogen Normal Negative mg/dL Urine Leukocyte Esterase Negative Negative /uL Urine RBC 3 0 - 3 /hpf Urine Microscopic WBC 1 0-3 /HPF Urine Squamous Epithelial Cells Few <5 /hpf Urine Bacteria None seen None Seen /hpf Urine Mucus Few None Seen Urine Glucose Normal Normal mg/dL Lactic Acid Level 2.1 *H 0.4-2.0 mmol/L Test 10/21/25 19:05 10/21/25 12:39 Range/Units Prothrombin Time 10.9 9.3-11.8 sec Prothrombin Time INR 1.03 0.9-1.15 Activated Partial Thromboplast Time 27.6 24.5-34.5 SEC D-Dimer, Quantitative 1.33 H 0.0-0.49 mg/L FEU Magnesium Level 1.8 1.6-2.6 mg/dL B-Type Natriuretic Peptide 15.03 0-100 pg/mL Lipase 35 12-53 U/L Thyroid Stimulating Hormone (TSH) 2.57 0.55-4.78 uIU/mL CT SCAN ABD PELVIS FINDINGS: Bibasilar atelectasis. Partially visualized heart is unremarkable. Liver, spleen, pancreas and adrenal glands are unremarkable. Cholelithiasis with no CT evidence of acute cholecystitis. Kidneys, ureters and urinary bladder unremarkable. Prostate measures 3.9 x 4.3 by 4 cm with calcifications. 1.6 cm hypodensity within the stomach with adjacent small Layering hypodensity which may represent Ingested material. Mild gastric wall thickening. 2.3 x 1.6 cm proximal duodenal diverticulum is noted. Proximal small bowel loops are unremarkable. Fluid filled distended mid to Distal Small bowel loops with areas with distention up to 3.9 cm. Appendix is unremarkable. Moderate amount of fecal material within the ascending and transverse colon. Otherwise, Small amount of fecal material within the colon. Mild wall thickening of the colon adjacent to the ileocecal valve. 2.6 x 2.2 cm fatty lesion over the left lateral midabdomen without adjacent inflammatory reaction which may represent an epiploic appendage. No evidence of intraperitoneal free air or free fluid. No evidence of aortic aneurysm or dissection. Minimal atherosclerotic calcification of the aorta. No significant lymphadenopathy. Moderate fat containing right inguinal hernia. Tiny fat containing umbilical hernia. The soft tissues unremarkable. Sclerotic focus of the right sacral bone which may represent a bone island blastic lesion not excluded. Severe degenerative changes of bilateral SI joints with moderate degenerative changes of bilateral hips. No evidence of acute osseous abnormalities. Multilevel bridging osteophytes of the thoracic and lumbar spine. 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 Rome is a 70-year-old male who presents with partial small bowel obstruction versus ileus. CT shows multiple distended loops of small bowel and multiple normal-appearing small bowel segments, also on CT there is thickening of the gastric wall and thickening of the ileocecal valve area. We will treat with decompression at this time. NG tube that was in place was too small, it was not draining and it was clogged, I tried flushing it an aspirating it and it did not work. I asked the nurse for replacement of the tube with a 18 [place]onese tube. 1. Replaced NG tube with a [address] NG tube to continuous suction initially, once he stops draining, placed it at low intermittent suctioned 3. Elective panendoscopy to be considered once medically stabilized 4. NPO 5 maintenance IV fluids 6. Gastrografin small-bowel follow-through for both diagnostic and therapeutic purposes 7. Surgical consult is following patient Plan discussed with: Other (Dr martínez) ELIZABETH HAINES MD Oct 22, 2025 21:57
[2025-10-23 00:46] VITALS: BP 125/89; PULSE 79; RESP 18; TEMP 98; O2SAT 99
[2025-10-23] MEDS: KETOROLAC TROMETH 30 MG/ML 1ML VIAL IV PRN (04:08)
[2025-10-23 05:00] VITALS: BP 119/74; PULSE 71; RESP 18; TEMP 98.2; O2SAT 94
[2025-10-23 06:06] LABS: Chloride 105 mmol/L (98-107); Potassium 3.8 mmol/L (3.5-5.1); Sodium 140 mmol/L (136-145)
[2025-10-23 06:07] LABS: Anion Gap 7 (5-15); Calcium 9.0 mg/dL (8.7-10.4); Carbon Dioxide 28 mmol/L (20-31)
[2025-10-23 06:12] LABS: BUN/Creatinine Ratio 12.6 (10.0-20.0); Blood Urea Nitrogen 12 mg/dL (9-23); Glucose 88 mg/dL (74-106)
[2025-10-23 08:41] LABS: Alanine Aminotransferase 12.0 U/L (7-40); Albumin 4.1 g/dL (3.2-4.8); Alkaline Phosphatase 78.0 U/L (46-116); Total Protein 6.8 g/dL (5.7-8.2)
[2025-10-23 08:47] LABS: Bilirubin, Direct 0.5 mg/dL (<0.3); Bilirubin, Total 1.5 mg/dL (0.2-1.0)
[2025-10-23 09:00] VITALS: BP 129/82; PULSE 73; RESP 18; TEMP 97.4; O2SAT 93
[2025-10-23] MEDS: GASTROGRAFIN 120 ML SOL ONE (10:52)
[2025-10-23 13:00] VITALS: BP 106/84; PULSE 81; RESP 20; TEMP 97.6; O2SAT 95
--- NOTE | 2025-10-23 13:38 | DVH ---
PROCEDURE: XY SMALL BOWEL SERIES-W GASTROGRA Reason for study/Clinical History: SBO Comparison Study: SMBG on DOS: 10/23/22, SMALL BOWEL SERIES-W GASTROGRA on DOS: 10/23/22 TECHNIQUE: Single contrast small bowel series performed utilizing 16 mL of Gastrografin administered via NG tube. FINDINGS/IMPRESSION: Initial hot dog vender view of the abdomen and pelvis showed distended loops of small bowel. Contrast is identified within the colon at 45 minutes following NGT administration This represents a normal small bowel transit time.
--- NOTE | 2025-10-23 16:00 | DVHPN2 ---
Progress Note - Surgical Date Seen: Oct 23, 2025 Post op day Post op day: 0 Subjective Patient reports: Feels better (Patient states he had a bowel movement this morning, we will like to proceed with small bowel follow-through today) Review of Systems: Deferred Objective Vital signs Vital Sign Date Time Temp Pulse Resp B/P (MAP) Pulse Ox O2 Delivery O2 Flow Rate FiO2 10/23/25 13:00 10/23/25 07:58 Room Air* 0 21 Total Intake and Output 10/22/25 10/22/25 10/23/25 15:00 23:00 07:00 Intake Total 1100 ml 100 ml 100 ml Output Total 300 ml Balance 1100 ml 100 ml -200 ml Medications Current Medications Medications Dose Ordered Sig/Esha Route Start Time Stop Time Status Last Admin Dose Admin Sodium Chloride 10 ml Q8HR IV 10/21/25 22:00 10/23/25 12:57 10 ML Sodium Chloride 1,000 ml @ 100 mls/hr Q10H IV 10/21/25 18:30 10/23/25 10:08 100 MLS/HR Ondansetron HCl 4 mg Q4HP PRN IV 10/21/25 18:30 Enoxaparin Sodium 40 mg DAILY SC 10/22/25 10:00 10/23/25 10:08 40 MG Pantoprazole Sodium 40 mg DAILY IV 10/21/25 18:30 10/23/25 10:07 40 MG Piperacillin Sod/ Tazobactam Sod 100 ml @ 25 mls/hr Q8H IV 10/22/25 00:00 10/23/25 10:06 25 MLS/HR Diagnostic Test (Pha) 1 strip Q6HR 10/22/25 00:00 10/23/25 12:00 1 STRIP Insulin Human Regular Q6HR SC 10/22/25 00:00 Dextrose 50 ml UD PRN IV 10/21/25 18:30 Amlodipine Besylate 5 mg DAILY PO 10/21/25 18:30 10/23/25 10:08 5 MG Ketorolac Tromethamine 15 mg Q6HPRN PRN IV 10/22/25 13:00 10/27/25 12:59 10/23/25 04:08 15 MG Laboratory Laboratory Tests 10/23/25 04:40 10/22/25 04:44 Test 12/26/25 04:40 Range/Units Serum Glucose 88 74-106 mg/dL Examination: GENERAL:Normal (AAO x3), LUNGS:Normal (Nonlabored breathing with symmetric expansion), ABDOMEN:Normal Labs and/or images reviewed: Labs reviewed by me Problem List/Assessment/Plan Assessment and Plan Mr. Rome is a 70-year-old male who presents with partial small bowel obstruction versus ileus. CT shows multiple distended loops of small bowel and multiple normal-appearing small bowel segments, also on CT there is thickening of the gastric wall and thickening of the ileocecal valve area. We will treat with decompression at this time. NG tube that was in place was too small, it was not draining and it was clogged, I tried flushing it an aspirating it and it did not work. I asked the nurse for replacement of the tube with a 18 Czech tube. Interval: Patient had a bowel movement this morning, small bowel follow-through was done today, small bowel follow-through past into the colon at the 45 minute netta, he has a multiple bowel movements. May start him on a clear liquid diet and clamp the NG tube 1. Clamp NG tube and start on clear liquid diet Plan discussed with Plan discussed with: Patient Visit Coding Surgery Date of Service if different f: Oct 23, 2025 Billing Provider: LACIE SAUNDERS MD Surgery Visit Codes: [id number] INP/OBS CARE(HIGH) LACIE SAUNDERS MD Oct 23, 2025 16:00
--- NOTE | 2025-10-23 16:07 | DVHPNRES ---
Progress Note Date Seen: Oct 23, 2025 Resident Creating Document: INGRID STILES RESIDENT Medical Necessity Reason Pt with a Central, PICC or Fol: No Subjective Review of Systems Mr. Rome is a 70 year old male with prior medical history of hypertension, type 2 diabetes mellitus, and hyperlipidemia, who presented to [facility] with chief complaint of abdominal bloating and vomiting. The patient refers that on Sunday he began to have abdominal bloating associated with constant epigastric pain described as sharp, 9/10 intensity, associated with vomiting containing gastric contents, no passing of gas, and constipation with last bowel movement being the night before symptoms began. Due to persistence of symptoms she presented to the emergency department for evaluation. On evaluation in the ED, patient was afebrile, tachycardic, hypertensive, and saturating adequately on 2L NC supplemental O2. Initial labs were significant for leukocytosis with neutrophilia, hyperglycemia, elevated lactic acid, and elevated D-dimer. CT Abdomen/Pelvis shows fluid filled distended small bowel loops measuring up to 3.9 cm, mild wall thickening of the mid stomach which may be due to inadequate distention/gastritis, segmental wall thickening of the ascending colon adjacent to the ileocecal valve. NG tube was placed for decompression, patient was placed on NPO, IV antibiotics, and general surgery and GI have been consulted. He was admitted for further work up and monitoring. Prior Surgical History: Denies Allergies: Denies Social: Denies previous drug and alcohol use. Refers he smoked cigarettes with cessation 35 years ago. States he lives with his and feels safe. 10/23/2025: Patient seen at bedside. States is well, was able to have a minor bowel movement but states it was more gas than feces. He was evaluated by GI who recommended small bowel gastrograffin series and elective panendoscopy when medically stable. Small bowel series with gastrograffin shows contrast within the colon at 45 minutes following NGT administration representing normal small bowel transit time. We will continue to monitor. Objective vital signs Vital Sign Date Time Temp Pulse Resp B/P (MAP) Pulse Ox O2 Delivery O2 Flow Rate FiO2 10/23/25 13:00 10/23/25 07:58 Room Air* 0 21 Total Intake and Output 10/22/25 10/22/25 10/23/25 15:00 23:00 07:00 Intake Total 1100 ml 100 ml 100 ml Output Total 300 ml Balance 1100 ml 100 ml -200 ml medications Current Medications Medications Dose Ordered Sig/Esha Route Start Time Stop Time Status Last Admin Dose Admin Sodium Chloride 10 ml Q8HR IV 10/21/25 22:00 10/23/25 12:57 10 ML Sodium Chloride 1,000 ml @ 100 mls/hr Q10H IV 10/21/25 18:30 10/23/25 10:08 100 MLS/HR Ondansetron HCl 4 mg Q4HP PRN IV 10/21/25 18:30 Enoxaparin Sodium 40 mg DAILY SC 10/22/25 10:00 10/23/25 10:08 40 MG Pantoprazole Sodium 40 mg DAILY IV 10/21/25 18:30 10/23/25 10:07 40 MG Piperacillin Sod/ Tazobactam Sod 100 ml @ 25 mls/hr Q8H IV 10/22/25 00:00 10/23/25 10:06 25 MLS/HR Diagnostic Test (Pha) 1 strip Q6HR 10/22/25 00:00 10/23/25 12:00 1 STRIP Insulin Human Regular Q6HR SC 10/22/25 00:00 Dextrose 50 ml UD PRN IV 10/21/25 18:30 Amlodipine Besylate 5 mg DAILY PO 10/21/25 18:30 10/23/25 10:08 5 MG Ketorolac Tromethamine 15 mg Q6HPRN PRN IV 10/22/25 13:00 10/27/25 12:59 10/23/25 04:08 15 MG Examination General: The patient alert and oriented in person place and time. Patient following commands HEENT: Normocephalic, atraumatic, normal reactive pupils, EOM intact, pink conjunctiva, pink moist mucous membrane, NG tube in right nare Respiratory/pulmonary: Bilateral chest expansion, no pain on palpation of chest wall, clear lungs bilaterally, vesicular murmurs present in almost all lung correa, no associated crackles or wheezes. Cardiovascular: Normal RRR, normal S1 and S2, no murmurs Abdomen: Abdomen distended however improved from yesterday, hypoactive bowel sounds, tympanic on percussion, soft, there is no pain to palpation in any of the abdominal quadrants, no palpable masses. Extremities: No deformities, there is no peripheral edema present at the lower extremities, normal pulses Skin: No rashes or pruritus, there is no sacral edema present at this time. Neurological: Intact cranial nerves with no focal neurologic deficits laboratory and microbiology Laboratory Tests 10/23/25 04:40 10/22/25 04:44 Test 10/23/25 04:40 Range/Units Serum Glucose 88 74-106 mg/dL Problem List/Assessment/Plan Problem List/Assessment/Plan Assessment and Plan: Possible Small Bowel Obstruction Lactic acidosis likely due to above Sepsis, ruled out Gastroenteritis, ruled out - CT A/P: Fluid-filled Distended Small bowel loops measuring up to 3.9 cm. Correlate for bowel obstruction/ ileus. Segmental wall thickening of the ascending colon adjacent to the ileocecal valve. Colonoscopy is recommended to exclude neoplasm. - Patient placed NPO - Zosyn 3.375 mg IV q 8 hours - Morphine discontinued - Toradol 15 mg IV q 6 hours PRN - NS 100 cc/hr IV - General surgery: Switched NGT to bigger size and placed on continuous suction, keep the patient NPO, and with maintenance fluids - GI: recommend small bowel follow through, elective panendoscopy when medically stable, keep NPO and on maintenance fluids - Small bowel series with gastrograffin: Initial typesetters printer view of the abdomen and pelvis showed distended loops of small bowel. ontrast is identified within the colon at 45 minutes following NGT administration This represents a normal small bowel transit time. Questionable acute hypoxic respiratory failure, resolved - 2L NC, now removed Hypertension - Monitor BP - Resume Losartan and Amlodipine when NPO lifted Type 2 Diabetes Mellitus with hyperglycemia, HbA1c 6.3 - NPO sliding scale - Consistent carbohydrate diet when NPO lifted - Accu-cheks Nutrition: NPO DVT prophylaxis: Lovenox 40 mg SC daily GI prophylaxis: Protonix 40 mg IV daily Goals of care discussed with the patient for over 25 minutes. FULL CODE. Case discussed with Dr. Ojeda Plan discussed with: Patient, Other (Nurse) My Orders My Orders Orders - INGRID STILES RESIDENT Procedure Category Date Status Time Small Bowel Series-W XY 10/23/25 Resulted Gastrogra 07:30 Visit Coding STANDARD RES Billing Provider: DORYS JOEDA MD Date of Service if different f: Oct 23, 2025 INGRID STILES Oct 23, 2025 16:07
[2025-10-23 17:00] VITALS: BP 127/90; PULSE 79; RESP 18; TEMP 97.3; O2SAT 93
--- NOTE | 2025-10-23 18:55 | DVHPN2 ---
Progress Note - Dictate Date Seen: Oct 23, 2025 Medical Necessity Reason Pt with a Central, PICC or Fol: No Subjective No new complaints, patient ambulating ; NG tube was clamped Patient was passing gas and there were two bowel movements recorded this morning Small-bowel series was done this morning on which showed no evidence of bowel obstruction Patient reports a negative colonoscopy in 2019 He had previous similar episodes of partial bowel obstruction three years ago vital signs Vital Sign Date Time Temp Pulse Resp B/P (MAP) Pulse Ox O2 Delivery O2 Flow Rate FiO2 10/23/25 17:00 97.3 79 18 127/90 (102) 93 97.3 10/23/25 07:58 Room Air* 0 21 Total Intake and Output 10/22/25 10/22/25 10/23/25 15:00 23:00 07:00 Intake Total 1100 ml 100 ml 100 ml Output Total 300 ml Balance 1100 ml 100 ml -200 ml medications Current Medications Medications Dose Ordered Sig/Esha Route Start Time Stop Time Status Last Admin Dose Admin Sodium Chloride 10 ml Q8HR IV 10/21/25 22:00 10/23/25 12:57 10 ML Sodium Chloride 1,000 ml @ 100 mls/hr Q10H IV 10/21/25 18:30 10/23/25 10:08 100 MLS/HR Ondansetron HCl 4 mg Q4HP PRN IV 10/21/25 18:30 Enoxaparin Sodium 40 mg DAILY SC 10/22/25 10:00 10/23/25 10:08 40 MG Pantoprazole Sodium 40 mg DAILY IV 10/21/25 18:30 10/23/25 10:07 40 MG Piperacillin Sod/ Tazobactam Sod 100 ml @ 25 mls/hr Q8H IV 10/22/25 00:00 10/23/25 16:29 25 MLS/HR Diagnostic Test (Pha) 1 strip Q6HR 10/22/25 00:00 10/23/25 16:30 1 STRIP Insulin Human Regular Q6HR SC 10/22/25 00:00 Dextrose 50 ml UD PRN IV 10/21/25 18:30 Amlodipine Besylate 5 mg DAILY PO 10/21/25 18:30 10/23/25 10:08 5 MG Ketorolac Tromethamine 15 mg Q6HPRN PRN IV 10/22/25 13:00 10/27/25 12:59 10/23/25 04:08 15 MG objective General: The patient alert and oriented in person place and time. Patient following commands HEENT: Normocephalic, atraumatic, normal reactive pupils, EOM intact, pink conjunctiva, pink moist mucous membrane, NG tube in right nare Respiratory/pulmonary: Bilateral chest expansion, no pain on palpation of chest wall, clear lungs bilaterally, vesicular murmurs present in almost all lung correa, no associated crackles or wheezes. Cardiovascular: Normal RRR, normal S1 and S2, no murmurs Abdomen: Abdomen distended however improved from yesterday, hypoactive bowel sounds, tympanic on percussion, soft, there is no pain to palpation in any of the abdominal quadrants, no palpable masses. Extremities: No deformities, there is no peripheral edema present at the lower extremities, normal pulses Skin: No rashes or pruritus, there is no sacral edema present at this time. Neurological: Intact cranial nerves with no focal neurologic deficits laboratory and microbiology Laboratory Tests 10/23/25 04:40 10/22/25 04:44 Test 10/23/25 04:40 Range/Units Serum Glucose 88 74-106 mg/dL Problems(with codes): (1) Obesity (BMI 35.0-39.9 without comorbidity) (2) Duodenal diverticulum (3) Diabetic nephropathy (4) Small bowel obstruction (5) Abnormal computed tomography of cecum and terminal ileum Prognosis Plan Ice chips and water then advance to clear liquid Continue to monitor bowel activity Supportive care Patient was advised to follow up in my office as an outpatient for elective colonoscopy once acute symptoms resolved Plan discussed with: Patient, Daughter, Other (Dr Ojeda and Dr Mccullough) ELIZABETH HAINES MD Oct 23, 2025 18:55
--- NOTE | 2025-10-23 19:55 | ECG ---
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
[2025-10-23 21:00] VITALS: BP 135/85; PULSE 68; RESP 15; TEMP 97.6; O2SAT 90
[2025-10-24] VITALS: BP 130/86; PULSE 70; RESP 17; TEMP 97.3; O2SAT 90
[2025-10-24 05:00] VITALS: BP 132/81; PULSE 71; RESP 17; TEMP 97.4; O2SAT 90
[2025-10-24 08:00] VITALS: RESP 16
[2025-10-24 08:58] LABS: Alanine Aminotransferase 13 U/L (7-40); Albumin 3.9 g/dL (3.2-4.8); Alkaline Phosphatase 70 U/L (46-116); Anion Gap 9 (5-15); BUN/Creatinine Ratio 13.3 (10.0-20.0); Bilirubin, Total 1.2 mg/dL (0.2-1.0); Blood Urea Nitrogen 12 mg/dL (9-23); Calcium 8.7 mg/dL (8.7-10.4); Carbon Dioxide 28 mmol/L (20-31); Chloride 105 mmol/L (98-107); Glucose 106 mg/dL (74-106); Potassium 3.9 mmol/L (3.5-5.1); Sodium 142 mmol/L (136-145); Total Protein 6.3 g/dL (5.7-8.2)
[2025-10-24 09:00] VITALS: BP 119/88; PULSE 72; RESP 17; TEMP 97.2; O2SAT 94
--- NOTE | 2025-10-24 10:56 | DVHPN2 ---
Progress Note - Surgical Date Seen: Oct 24, 2025 Post op day Post op day: 0 Subjective Patient reports: Feels better (Patient has had multiple bowel movements, and tolerating clear liquid diet) Review of Systems: Deferred Objective Vital signs Vital Sign Date Time Temp Pulse Resp B/P (MAP) Pulse Ox O2 Delivery O2 Flow Rate FiO2 10/24/25 09:00 97.2 72 17 119/88 (98) 94 97.2 10/24/25 08:00 Room Air* 0 21 Total Intake and Output 10/23/25 10/23/25 10/24/25 15:00 23:00 07:00 Intake Total 400 ml 320 ml Output Total 200 ml Balance 200 ml 320 ml Medications Current Medications Medications Dose Ordered Sig/Esha Route Start Time Stop Time Status Last Admin Dose Admin Sodium Chloride 10 ml Q8HR IV 10/21/25 22:00 10/24/25 05:16 10 ML Sodium Chloride 1,000 ml @ 100 mls/hr Q10H IV 10/21/25 18:30 10/23/25 20:52 100 MLS/HR Ondansetron HCl 4 mg Q4HP PRN IV 10/21/25 18:30 Enoxaparin Sodium 40 mg DAILY SC 10/22/25 10:00 10/24/25 08:38 40 MG Pantoprazole Sodium 40 mg DAILY IV 10/21/25 18:30 10/24/25 08:38 40 MG Piperacillin Sod/ Tazobactam Sod 100 ml @ 25 mls/hr Q8H IV 10/22/25 00:00 10/24/25 08:36 25 MLS/HR Diagnostic Test (Pha) 1 strip Q6HR 10/22/25 00:00 10/24/25 05:21 1 STRIP Insulin Human Regular Q6HR SC 10/22/25 00:00 Dextrose 50 ml UD PRN IV 10/21/25 18:30 Amlodipine Besylate 5 mg DAILY PO 10/21/25 18:30 10/24/25 08:40 5 MG Ketorolac Tromethamine 15 mg Q6HPRN PRN IV 10/22/25 13:00 10/27/25 12:59 10/23/25 04:08 15 MG Laboratory Laboratory Tests 10/24/25 08:23 10/22/25 04:44 Test 10/24/25 08:23 Range/Units Serum Glucose 106 74-106 mg/dL Examination: GENERAL:Normal (AAO x3), LUNGS:Normal (Nonlabored breathing with symmetric expansion), ABDOMEN:Normal (Nondistended, soft, depressible, nontender) Labs and/or images reviewed: Labs reviewed by me Problem List/Assessment/Plan Assessment and Plan Mr. Rome is a 70-year-old male who presents with partial small bowel obstruction versus ileus. CT shows multiple distended loops of small bowel and multiple normal-appearing small bowel segments, also on CT there is thickening of the gastric wall and thickening of the ileocecal valve area. We will treat with decompression at this time. NG tube that was in place was too small, it was not draining and it was clogged, I tried flushing it an aspirating it and it did not work. I asked the nurse for replacement of the tube with a 18 Danish tube. Interval: Patient had small bowel follow-through yesterday, and it passed into the colon and 45 minutes, patient has had multiple bowel movements since then, and has tolerated clear liquid diet. Advance diet and discharge if tolerated. 1. Discontinue NG tube 2. Advance diet as tolerated 3. Cleared for discharge per surgical standpoint Plan discussed with Plan discussed with: Patient Visit Coding Surgery Date of Service if different f: Oct 24, 2025 Billing Provider: LACIE SAUNDERS MD Surgery Visit Codes: [id number] INP/OBS CARE(HIGH) LACIE SAUNDERS MD Oct 24, 2025 10:56
[2025-10-24 13:00] VITALS: BP 129/83; PULSE 76; RESP 20; TEMP 97.5; O2SAT 96
[2025-10-24] MEDS ORDERED: AUG875T PO (14:14)
[2025-10-24] MEDS ORDERED: FAMO20TA10 PO (14:26)
--- NOTE | 2025-10-24 14:38 | DVHDSRES ---
Discharge Summary Date of Admission Resident Creating Document: INGRID STILES RESIDENT Oct 21, 2025 at 18:17 Date of Discharge: Oct 24, 2025 Admitting Diagnosis Small bowel obstruction Wounds: No wounds Labs/Diagnostic Data: Laboratory Results Test 10/24/25 10:54 10/24/25 08:23 10/23/25 04:40 10/22/25 04:44 POC Glucose 75 mg/dl (70-106) Sodium Level 142 mmol/L (136-145) Potassium Level 3.9 mmol/L (3.5-5.1) Chloride Level 105 mmol/L (98-107) Carbon Dioxide Level 28 mmol/L (20-31) Anion Gap 9 (5-15) Blood Urea Nitrogen 12 mg/dL (9-23) Creatinine 0.90 mg/dL (0.700-1.30) Glomerular Filtration Rate Calc 92 mL/min (>90) BUN/Creatinine Ratio 13.3 (10.0-20.0) Serum Glucose 106 mg/dL (74-106) Calcium Level 8.7 mg/dL (8.7-10.4) Total Bilirubin 1.2 mg/dL (0.2-1.0) Aspartate Amino Transferase (AST) 24 U/L (13-40) Alanine Aminotransferase (ALT) 13 U/L (7-40) Alkaline Phosphatase 70 U/L (46-116) Total Protein 6.3 g/dL (5.7-8.2) Albumin 3.9 g/dL (3.2-4.8) Direct Bilirubin 0.5 mg/dL (<0.3) White Blood Count 7.5 10^3/uL (4.4-10.8) Red Blood Count 5.42 10^6/uL (4.5-5.90) Hemoglobin 15.1 g/dL (13.5-17.5) Hematocrit 46.0 % (41.0-53.0) Mean Corpuscular Volume 85.0 fL (80.0-100.0) Mean Corpuscular Hemoglobin 27.9 pg (28.0-32.0) Mean Corpuscular Hemoglobin Concent 32.9 g/dL (32.0-36.0) Red Cell Distribution Width 15.0 % (11.8-14.3) Platelet Count 205 10^3/uL (140-450) Mean Platelet Volume 7.7 fL (6.9-10.8) Neutrophils (%) (Auto) 64.5 % (37.0-80.0) Lymphocytes (%) (Auto) 21.9 % (10.0-50.0) Monocytes (%) (Auto) 12.7 % (0.0-12.0) Eosinophils (%) (Auto) 0.7 % (0.0-7.0) Basophils (%) (Auto) 0.2 % (0.0-2.0) Neutrophils # (Auto) 4.8 10 ^3/uL (1.6-8.6) Lymphocytes # (Auto) 1.6 10 ^3/uL (0.4-5.4) Monocytes # (Auto) 1.0 10 ^3/uL (0-1.3) Eosinophils # (Auto) 0.1 10 ^3/uL (0-0.8) Basophils # (Auto) 0 10 ^3/uL (0-0.2) Nucleated Red Blood Cells 0.1 % Test 10/21/25 23:54 10/21/25 20:56 10/21/25 19:05 10/21/25 12:39 Urine Color Yellow (Yellow) Urine Clarity Clear (Clear) Urine pH 5.5 (5.0-9.0) Urine Specific Pierce 1.030 (1.001-1.035) Urine Protein 1+ (Negative) Urine Ketones Trace (Negative) Urine Blood Negative /uL (Negative) Urine Nitrite Negative (Negative) Urine Bilirubin Negative (Negative) Urine Urobilinogen Normal mg/dL (Negative) Urine Leukocyte Esterase Negative /uL (Negative) Urine RBC 3 /hpf (0 - 3) Urine Microscopic WBC 1 /HPF (0-3) Urine Squamous Epithelial Cells Few /hpf (<5) Urine Bacteria None seen /hpf (None Seen) Urine Mucus Few (None Seen) Urine Glucose Normal mg/dL (Normal) Lactic Acid Level 2.1 mmol/L (0.4-2.0) Prothrombin Time 10.9 sec (9.3-11.8) Prothrombin Time INR 1.03 (0.9-1.15) Activated Partial Thromboplast Time 27.6 SEC (24.5-34.5) D-Dimer, Quantitative 1.33 mg/L FEU (0.0-0.49) Magnesium Level 1.8 mg/dL (1.6-2.6) B-Type Natriuretic Peptide 15.03 pg/mL (0-100) Lipase 35 U/L (12-53) Thyroid Stimulating Hormone (TSH) 2.57 uIU/mL (0.55-4.78) Other Laboratory Tests 10/24/25 08:23 10/22/25 04:44 Brief Hx & Hospital Course: Mr. Rome is a 70 year old male with prior medical history of hypertension, type 2 diabetes mellitus, and hyperlipidemia, who presented to [facility] with chief complaint of abdominal bloating and vomiting. The patient refers that on Sunday he began to have abdominal bloating associated with constant epigastric pain described as sharp, 9/10 intensity, associated with vomiting containing gastric contents, no passing of gas, and constipation with last bowel movement being the night before symptoms began. Due to persistence of symptoms she presented to the emergency department for evaluation. On evaluation in the ED, patient was afebrile, tachycardic, hypertensive, and saturating adequately on 2L NC supplemental O2. Initial labs were significant for leukocytosis with neutrophilia, hyperglycemia, elevated lactic acid, and elevated D-dimer. CT Abdomen/Pelvis shows fluid filled distended small bowel loops measuring up to 3.9 cm, mild wall thickening of the mid stomach which may be due to inadequate distention/gastritis, segmental wall thickening of the ascending colon adjacent to the ileocecal valve. NG tube was placed for decompression, patient was placed on NPO, IV antibiotics, and general surgery and GI have been consulted. He was admitted for further work up and monitoring. Patient was evaluated by General Surgery who replaced NG tube and placed on continuous suction. He was evaluated by GI who recommended small bowel follow through with gastrograffin. This study showed contrast in the colon after 45 minutes of contrast administration, which is within normal range. NPO was lifted and patient was started on clear liquid diet, which he tolerated. He began to pass gas and have bowel movements. On evaluation today, the patient states he is well, abdominal pain and bloating have resolved. He is afebrile, normocardic, normotensive, saturating adequately on room air. GI recommends outpatient panendoscopy when symptoms have resolved. Patient has been cleared for discharge by general surgery.He is tolerated clear liquid diet. He is considered stable for discharge home with Augmentin to complete antibiotic course. He will follow up outpatient with GI and with his PCP. All medications, indications, treatment regimens, and potential side effects have been explained to the patient. Recommendations, questions, and concerns have be thoroughly addressed. He states he understands and agrees. Physical Exam General: The patient alert and oriented in person place and time. Patient following commands HEENT: Normocephalic, atraumatic, normal reactive pupils, EOM intact, pink conjunctiva, pink moist mucous membrane, NG tube in right nare Respiratory/pulmonary: Bilateral chest expansion, no pain on palpation of chest wall, clear lungs bilaterally, vesicular murmurs present in almost all lung correa, no associated crackles or wheezes. Cardiovascular: Normal RRR, normal S1 and S2, no murmurs Abdomen: Abdomen distended however improved from yesterday, hypoactive bowel sounds, tympanic on percussion, soft, there is no pain to palpation in any of the abdominal quadrants, no palpable masses. Extremities: No deformities, there is no peripheral edema present at the lower extremities, normal pulses Skin: No rashes or pruritus, there is no sacral edema present at this time. Neurological: Intact cranial nerves with no focal neurologic deficits Goals of care and discharge plan discussed with the patient and his family at bedside for over 24 minutes. Case discussed with Dr. Ojeda Consults/Reason for consult General Surgery and Gastroenterology were consulted due to potential small bowel obstruction Operations or Procedures EXAM: CT CT AB PEL WITH IV CON ONLY History: Sudden onset due abdominal distention Comparison Study: CT AB PEL WITH IV CON ONLY on DOS: 10/21/22 TECHNIQUE: Multidetector CT of the abdomen and pelvis with IV contrast. Axial, coronal and sagittal multiplanar reformats were obtained from the axial data set by the technologist. Radiation Dose Information: CT Dose: CTDI volume is 24.7 mGy. Dose-length product is 1569.25 mGy*cm FINDINGS: Bibasilar atelectasis. Partially visualized heart is unremarkable. Liver, spleen, pancreas and adrenal glands are unremarkable. Cholelithiasis with no CT evidence of acute cholecystitis. Kidneys, ureters and urinary bladder unremarkable. Prostate measures 3.9 x 4.3 by 4 cm with calcifications. 1.6 cm hypodensity within the stomach with adjacent small Layering hypodensity which may represent Ingested material. Mild gastric wall thickening. 2.3 x 1.6 cm proximal duodenal diverticulum is noted. Proximal small bowel loops are unremarkable. Fluid filled distended mid to Distal Small bowel loops with areas with distention up to 3.9 cm. Appendix is unremarkable. Moderate amount of fecal material within the ascending and transverse colon. Otherwise, Small amount of fecal material within the colon. Mild wall thickening of the colon adjacent to the ileocecal valve. 2.6 x 2.2 cm fatty lesion over the left lateral midabdomen without adjacent inflammatory reaction which may represent an epiploic appendage. No evidence of intraperitoneal free air or free fluid. No evidence of aortic aneurysm or dissection. Minimal atherosclerotic calcification of the aorta. No significant lymphadenopathy. Moderate fat containing right inguinal hernia. Tiny fat containing umbilical hernia. The soft tissues unremarkable. Sclerotic focus of the right sacral bone which may represent a bone island blastic lesion not excluded. Severe degenerative changes of bilateral SI joints with moderate degenerative changes of bilateral hips. No evidence of acute osseous abnormalities. Multilevel bridging osteophytes of the thoracic and lumbar spine. IMPRESSION: Fluid-filled Distended Small bowel loops measuring up to 3.9 cm. Correlate for bowel obstruction/ ileus. Mild wall thickening of the mid stomach which may be due to inadequate distention/gastritis. Segmental wall thickening of the ascending colon adjacent to the ileocecal valve. Colonoscopy is recommended to exclude neoplasm. Additional findings as above. CHEST RADIOGRAPH INDICATION: sob TECHNIQUE: Single frontal view of the chest was obtained COMPARISON: CHEST XRAY 1 VIEW on DOS: 10/21/22, CHEST PORTABLE on DOS: 10/21/22, CXR1 on DOS: 10/21/22 FINDINGS: Lines and Tubes: None Lungs: No focal consolidation. Pleura: No effusion. No pneumothorax. Cardiomediastinal contours: Unremarkable Bones: No acute osseous abnormality. IMPRESSION: 1. No acute cardiopulmonary disease. 2. Circular collection 8 round foreign bodies over the right upper quadrant. 3. No infiltrates or effusions. CHEST RADIOGRAPH INDICATION: NG tube placement TECHNIQUE: Single frontal view of the chest was obtained COMPARISON: XY CHEST XRAY 1 VIEW on DOS: 10/21/25, CT CHEST WITHOUT CONTRAST on DOS: 03/05/24, CHEST XRAY 1 VIEW on DOS: 10/21/22, CHEST PORTABLE on DOS: 10/21/22, CXR1 on DOS: 10/21/22 FINDINGS: Lines and Tubes: New enteric catheter courses below the level of the diaphragm and terminates beyond the inferior margin of the image. Lungs: Clear Pleura: No effusion. No pneumothorax. Cardiomediastinal contours: Unremarkable Bones: Unremarkable IMPRESSION: 1. Enteric catheter terminates beyond the inferior margin of the image. 2. No acute cardiopulmonary process CHEST RADIOGRAPH INDICATION: NG Tube placement TECHNIQUE: Single frontal view of the chest was obtained COMPARISON: XY CHEST XRAY 1 VIEW on DOS: 10/21/25, XY CHEST XRAY 1 VIEW on DOS: 10/21/25, CHEST XRAY 1 VIEW on DOS: 10/21/22, CHEST PORTABLE on DOS: 10/21/22, CXR1 on DOS: 10/21/22 FINDINGS: Lines and Tubes: Interval retraction of the enteric catheter such that the tip now projects within the mid to distal esophagus Lungs: Clear Pleura: No effusion. No pneumothorax. Cardiomediastinal contours: Unremarkable Bones: Unremarkable IMPRESSION: 1. Interval retraction of the enteric catheter such that the tip now projects within the mid to distal esophagus. Advancement is recommended. 2. No acute cardiopulmonary process. CHEST RADIOGRAPH INDICATION: NG Tube Placement TECHNIQUE: Single frontal view of the chest was obtained COMPARISON: XY CHEST XRAY 1 VIEW on DOS: 10/22/25, XY CHEST XRAY 1 VIEW on DOS: 10/21/25, XY CHEST XRAY 1 VIEW on DOS: 10/21/25, CT CHEST WITHOUT CONTRAST on DOS: 03/05/24, CHEST XRAY 1 VIEW on DOS: 10/21/22 FINDINGS: Lines and Tubes: Interval advancement of enteric catheter with tip now projecting within the gastric lumen. Lungs: Clear Pleura: No effusion. No pneumothorax. Cardiomediastinal contours: Unremarkable Bones: Unremarkable IMPRESSION: 1. Interval advancement of enteric catheter with tip now projecting within the gastric lumen. 2. No evidence of acute cardiopulmonary process. CHEST RADIOGRAPH INDICATION: CONFIRM NG PLACEMENT TECHNIQUE: Single frontal view of the chest was obtained COMPARISON: XY CHEST XRAY 1 VIEW on DOS: 10/22/25, XY CHEST XRAY 1 VIEW on DOS: 10/22/25, XY CHEST XRAY 1 VIEW on DOS: 10/21/25, XY CHEST XRAY 1 VIEW on DOS: 10/21/25, CHEST XRAY 1 VIEW on DOS: 10/21/22 FINDINGS: Lines and Tubes: NG tube coiled in the distal esophagus and should be repositioned. Lungs: Clear Pleura: No effusion. No pneumothorax. Cardiomediastinal contours: Unremarkable Bones: Unremarkable IMPRESSION: 1. NG tube coiled in the distal esophagus and should be reposition. CLINICAL HISTORY: NG tube placement confirmation TECHNIQUE: 1 view of the chest was obtained. WID: COMPARISON: XY CHEST PORTABLE on DOS: 10/22/25, XY CHEST XRAY 1 VIEW on DOS: 10/22/25, XY CHEST XRAY 1 VIEW on DOS: 10/22/25, XY CHEST XRAY 1 VIEW on DOS: 10/21/25, XY CHEST XRAY 1 VIEW on DOS: 10/21/25 FINDINGS: Lungs: Trace septal thickening. Minimal subsegmental atelectasis. Cardiomediastinal silhouette: normal in size Bones: No acute osseous abnormality. Imaged Upper Abdomen: Suction type enteric tube is coiled in the stomach.. IMPRESSION: Enteric tube is in the proximal stomach. Pulmonary vascular congestion PROCEDURE: XY SMALL BOWEL SERIES-W GASTROGRA Reason for study/Clinical History: SBO Comparison Study: SMBG on DOS: 10/23/22, SMALL BOWEL SERIES-W GASTROGRA on DOS: 10/23/22 TECHNIQUE: Single contrast small bowel series performed utilizing 16 mL of Gastrografin administered via NG tube. FINDINGS/IMPRESSION: Initial wetland scientist view of the abdomen and pelvis showed distended loops of small bowel. Contrast is identified within the colon at 45 minutes following NGT administration This represents a normal small bowel transit time. Condition at Discharge: Stable Final Diagnosis/Problems List Possible Small Bowel Obstruction Lactic acidosis likely due to above Sepsis, ruled out Gastroenteritis, ruled out Questionable acute hypoxic respiratory failure, resolved Hypertension Type 2 Diabetes Mellitus with hyperglycemia, HbA1c 6.3 Discharge Disposition: Home Discharge Instruct/Medications Diet: Regular Activity: No Restrictions, As Tolerated Follow Up/Referral: Follow up with GI out patient Medications: Pepcid 20 mg PO daily as needed Scheduled Amlodipine Besylate (Amlodipine Besylate), 1 TAB PO DAILY, (Reported) Amoxicillin & Pot Clavulanate (Augmentin Tablet), 875 MG PO BID Atorvastatin Calcium (Lipitor), 1 TAB PO DAILY, (Reported) Losartan Potassium (Losartan Potassium), 1 TAB PO DAILY, (Reported) Metformin Hydrochloride (Metformin Hcl), 1 TAB PO DAILY, (Reported) Scheduled PRN Famotidine (Pepcid Tablet), 1 TAB PO BID PRN Discharge Statement: "Patient was advised to return to the ER or call 911 if any headaches, dizziness, shortness of breath, chest pain, abdominal pain, bleeding, fevers, or worsening of medical condition. Patient was counseled about treatment plan, medications, possible side effects, patientverbalized understanding. All questions were answered to the best of my ability. This discharge took greater then 30 minutes in planning, reviewing documentation, counseling the patient, and discussing with other team members." ASSESSMENT ASSESSMENT Assessment SBO Visit Coding STANDARD RES Billing Provider: DORYS OJEDA MD Date of Service if different f: Oct 24, 2025 INGRID STILES RESIDENT Oct 24, 2025 14:38
[2025-10-24 14:51] VITALS: BP 132/81; RESP 18; TEMP 36.4
--- NOTE | 2025-10-24 21:47 | DVHPN2 ---
Progress Note - Dictate Date Seen: Oct 24, 2025 (Late entryTime of visit 10:00 a.m.) Medical Necessity Reason Pt with a Central, PICC or Fol: No Subjective Feels better (Patient has had multiple bowel movements, and tolerating clear liquid diet) vital signs Vital Sign Date Time Temp Pulse Resp B/P (MAP) Pulse Ox O2 Delivery O2 Flow Rate FiO2 10/24/25 14:51 36.4 18 10/24/25 13:00 76 129/83 (98) 96 10/24/25 08:00 Room Air* 0 21 Total Intake and Output 10/23/25 10/23/25 10/24/25 14:59 22:59 06:59 Intake Total 100 ml 500 ml 420 ml Output Total 200 ml Balance 100 ml 300 ml 420 ml objective General: The patient alert and oriented in person place and time. Patient following commands HEENT: Normocephalic, atraumatic, normal reactive pupils, EOM intact, pink conjunctiva, pink moist mucous membrane, NG tube in right nare Respiratory/pulmonary: Bilateral chest expansion, no pain on palpation of chest wall, clear lungs bilaterally, vesicular murmurs present in almost all lung correa, no associated crackles or wheezes. Cardiovascular: Normal RRR, normal S1 and S2, no murmurs Abdomen: Abdomen distended however improved from yesterday, hypoactive bowel sounds, tympanic on percussion, soft, there is no pain to palpation in any of the abdominal quadrants, no palpable masses. Extremities: No deformities, there is no peripheral edema present at the lower extremities, normal pulses Skin: No rashes or pruritus, there is no sacral edema present at this time. Neurological: Intact cranial nerves with no focal neurologic deficits laboratory and microbiology Laboratory Tests 10/24/25 08:23 10/22/25 04:44 Test 10/24/25 08:23 Range/Units Serum Glucose 106 74-106 mg/dL Problems(with codes): (1) Duodenal diverticulum (2) Small bowel obstruction (3) Abnormal computed tomography of cecum and terminal ileum Prognosis Plan Advance diet as tolerated Discharge planning in progress Outpatient follow up with me for elective colonoscopy Plan discussed with: Patient, Spouse ELIZABETH HAINES MD Oct 24, 2025 21:47
== END 2025-10-24 15:46 | disposition home or self-care (01) | DRG 388 ==
LOC: ER 11:59 → OVERFLOW 18:17 → WEST WING 21:08
PROVIDERS: ADMIT Student in an Organized Health Care Education/Training Program; ATTEND Student in an Organized Health Care Education/Training Program
PROC: 0D9670Z Drainage of Stomach with Drainage Device, Via Natural or Artificial Opening (ICD-10-PCS; principal; 2025-10-22)
DX: K56.600 Partial intestinal obstruction, unspecified as to cause (principal); J96.01 Acute respiratory failure with hypoxia; E87.20 Acidosis, unspecified; I10 Essential (primary) hypertension; E11.65 Type 2 diabetes mellitus with hyperglycemia; E78.5 Hyperlipidemia, unspecified; Z82.49 Family history of ischemic heart disease and other diseases of the circulatory system
CPT/HCPCS: 36415; 71045; 74177; 74250; 80048; 80053; 80076; 81001; 82962; 83605; 83690; 83735; 83880; 84443; 85025; 85379; 85610; 85730; 93005; G0378; J1885; J2470; J2543